=== PATIENT | male | born 1960 | race American Indian/Alaskan Native ===

== ENCOUNTER 2017-03-05 05:15 | Emergency (ER) | payer OTHER ==
[2017-03-05] MEDS ORDERED: CATAPRES ONE (05:58)
[2017-03-05] MEDS ORDERED: CATAPRES PO ONE (06:00)
--- NOTE | 2017-03-05 13:13 | Emergency Department Report ---
HPI - General Chief Complaint: High BP Time Seen by Provider: 03/05/17 13:00 - HPI HPI: This is a 56-year-old -Greek male presents to the emergency department with complaint of a 3 week history of right foot pain that occurred after he accidentally hit his foot on a pallet at work. It caused a abrasion to the distal dorsal foot at the base of the toes and this is where he has been having the pain. He denies any bleeding, discharge or any other signs or symptoms of infection at this time. He's been trying analgesic balm without any relief. The patient is diabetic. The patient also presents with very elevated blood pressure and says he has not been on his blood pressure medications for about 3 months secondary to insurance issues. He denies any chest pain, shortness of breath, fever, back pain but does complain of a "chest cold" that includes a productive cough has been going on for the past few days. No recent travel or sick contacts at home. He denies any tobacco or illicit drug use or abuse. Primary care physician is Dr. Steele. ED Past Medical Hx - Past Medical History Previous Medical History?: Yes Hx Hypertension: Yes Hx Diabetes: Yes Additional medical history: sleep apnea - Surgical History Past Surgical History?: No - Social History Smoking Status: Former Smoker Substance Use Type: Alcohol - Medications Home Medications: Home Medications Medication Instructions Recorded Confirmed Last Taken Type Amlodipine Besylate [Norvasc] 10 mg PO QDAY #30 tablet 03/05/17 Unknown Rx HYDROcodone/ACETAMINOPHEN [[place] 1 each PO Q6H PRN #12 tablet 03/05/17 Unknown Rx 5-325 Tablet] Sulfamethoxazole/Trimethoprim 1 each PO BID #14 tablet 03/05/17 Unknown Rx [Bactrim DS TAB] metFORMIN [Glucophage] 500 mg PO BID #60 tablet 03/05/17 Unknown Rx ED Review of Systems ROS: Stated complaint: RIGHT fOOT PAIN Other details as noted in HPI Comment: All other systems reviewed and negative Constitutional: denies: chills, fever Eyes: denies: eye pain, eye discharge, vision change ENT: denies: ear pain, throat pain Respiratory: cough. denies: shortness of breath Cardiovascular: denies: chest pain, palpitations Gastrointestinal: denies: abdominal pain, nausea, diarrhea Genitourinary: denies: urgency, dysuria Musculoskeletal: arthralgia. denies: back pain Skin: denies: rash, pruritus Neurological: denies: headache, weakness, paresthesias Physical Exam - Physical Exam Vital Signs: Vital Signs 03/05/17 03/05/17 03/05/17 05:49 06:02 11:29 Temperature 98.1 F Pulse Rate 101 H 101 H 94 H Respiratory 20 18 Rate Blood Pressure 208/134 208/133 221/148 O2 Sat by Pulse 97 Oximetry Physical Exam: GENERAL: The patient is well-developed well-nourished. HENT: Normocephalic. Atraumatic. Patient has moist mucous membranes. EYES: Extraocular motions are intact. Pupils equal reactive to light bilaterally. NECK: Supple. Trachea is midline. CHEST/LUNGS: Clear to auscultation. There is a productive sounding cough heard during examination. There is no respiratory distress noted. HEART/CARDIOVASCULAR: Regular. There is no tachycardia. There is no murmur. ABDOMEN: Abdomen is soft, nontender. Patient has normal bowel sounds. There is no abdominal distention. SKIN: Skin is warm and dry. There is a small abrasion to the distal dorsal right foot between toes 2 and 3. There is no surrounding erythema. There is no fluctuance or bleeding or discharge. NEURO: The patient is awake, alert, and oriented. The patient is cooperative. The patient has no focal neurologic deficits. The patient has normal speech and gait. MUSCULOSKELETAL: There is localized tenderness to palpation to the dorsal distal right foot between toes 2 and 3.. There is no limitation range of motion. Pedal pulses +2 over 4 bilaterally. Cap refill less than 2 seconds. ED Course Vital Signs 03/05/17 03/05/17 03/05/17 05:49 06:02 11:29 Temperature 98.1 F Pulse Rate 101 H 101 H 94 H Respiratory 20 18 Rate Blood Pressure 208/134 208/133 221/148 O2 Sat by Pulse 97 Oximetry ED Medical Decision Making - Lab Data Result diagrams: 03/05/17 13:39 03/05/17 13:39 - Radiology Data Radiology results: report reviewed, image reviewed interpreted by me: Chest x-ray shows some mild cardiomegaly but otherwise no pneumothorax, pleural effusions or obvious pneumonia. X-ray of the right foot does not show any fracture, dislocation, signs of osteomyelitis or any other acute process. - Medical Decision Making 56-year-old male presents with complaint of right foot pain for the past few weeks and a chest cold. He has medication noncompliance for the past few months including his blood pressure and IV's medications. He presents with very elevated blood pressure but is otherwise asymptomatic regarding hypertension. He was given a Catapres through triage many hours ago and then was given a dose of 10 mg hydralazine to the IV and his blood pressure came down to a much more reasonable level prior to discharge. His labs do show some elevated blood sugar level of about 270 but there is no elevated anion gap and the patient does not appear to be in diabetic ketoacidosis. He has some renal insufficiency with a creatinine of 2. However the patient says that he has polyuria and he denies any abdominal or flank or back pain. He appears safe for discharge home at this time. He was given a dose of antibiotics to empirically treat his foot. He was started on Norvasc and we discussed dietary changes to make for his blood pressure. He was restarted on his metformin and he will keep a blood sugar log to make sure he does not become hypoglycemic and to make sure that it is working. He was given a referral for podiatry. He was encouraged to follow up with his primary care doctor in the next 2 days. He will return to the ER with any worsening of symptoms or any acute distress. - Differential Diagnosis fracture, dislocation, osteomyelitis, URI, bronchitis, pneumonia Critical Care Time: No Critical care attestation.: If time is entered above; I have spent that time in minutes in the direct care of this critically ill patient, excluding procedure time. ED Disposition Clinical Impression: Right foot pain, Hyperglycemia, Asymptomatic hypertensive urgency, H/O medication noncompliance, Renal insufficiency Disposition: DC-01 TO HOME OR SELFCARE Is pt being admited?: No Condition: Stable Instructions: Hypertension (ED), Arthralgia (ED), Diabetic Hyperglycemia (ED), Impaired Kidney Function (ED) Additional Instructions: Please follow-up with your primary care physician in the next few days without fail. I have given you a referral for a local motor bike mechanic, Dr. Tracey, to follow up regarding your right foot pain. Return to the emergency Department with any worsening of your symptoms or any acute distress. You have been prescribed a medication that is sedating and therefore should not be taken prior to driving, working, and responsible for children and in no way should be mixed with alcohol of any quantity. Try and stay away from foods that are high in salt and caffeinated products to help with your blood pressure. Keep a blood pressure log. Try and stay away from foods that are high in sugar, carbohydrates and starches to help with your blood sugar. Keep a blood sugar log. Prescriptions: Amlodipine Besylate [Norvasc] 10 mg PO QDAY #30 tablet HYDROcodone/ACETAMINOPHEN [[place] 5-325 Tablet] 1 each PO Q6H PRN #12 tablet PRN Reason: Pain metFORMIN [Glucophage] 500 mg PO BID #60 tablet Sulfamethoxazole/Trimethoprim [Bactrim DS TAB] 1 each PO BID #14 tablet Referrals: MENDOZA CESPEDES MD [Primary Care Provider] - 3-5 Days THELMA TRACEY MD [Staff Physician] - 3-5 Days Forms: Work/School Release Form(ED) Time of Disposition: 14:56
[2017-03-05 13:58] LABS: Basophils % (Auto) 2.5 % (0.0-1.8); Eosinophils % (Auto) 1.9 % (0.0-4.3); Hematocrit 46.6 % (35.5-45.6); Hemoglobin 15.8 gm/dl (11.8-15.2); Mean Corpuscular HGB Conc 34 % (32-34); Mean Corpuscular Hemoglobin 31 pg (28-32); Mean Corpuscular Volume 90 fl (84-94); Platelet Count 245 K/mm3 (140-440); Red Blood Count 5.17 M/mm3 (3.65-5.03); Red Cell Distribution Width 12.4 % (13.2-15.2); White Blood Count 10.5 K/mm3 (4.5-11.0)
[2017-03-05] MEDS ORDERED: APRESOLINE IV ONE (14:11)
[2017-03-05 14:13] LABS: Albumin 2.9 g/dL (3.9-5); Albumin/Globulin Ratio 0.7 %; Bilirubin,Total 0.2 mg/dL (0.1-1.2); Calcium 8.6 mg/dL (8.4-10.2); Chloride 100.5 mmol/L (98-107); Potassium 4.1 mmol/L (3.6-5.0); Total Protein 6.8 g/dL (6.3-8.2)
[2017-03-05 15:11] VITALS: BP 141/88
--- NOTE | 2017-03-05 15:32 | XRay Report ---
RIGHT FOOT RADIOGRAPHS INDICATION: Right foot pain. COMPARISON: None similar. FINDINGS: AP, lateral and oblique right foot radiographs demonstrate intact bony articulation. No suspicious erosions. Moderate atherosclerotic vascular calcifications. Slight dorsal mid foot degenerative spurring. Diffuse foot soft tissue swelling also suspected, more so along the dorsum, possibly extending to the ankle/lower leg. CONCLUSION: Right foot soft tissue swelling suspected without acute bony abnormality and few other findings, as above. Please correlate. Thank you for the opportunity to participate in this patient's care.
--- NOTE | 2017-03-05 15:33 | XRay Report ---
CHEST 2 VIEWS INDICATION: Cough. COMPARISON: 07/11/2007. FINDINGS: PA and lateral chest radiographs demonstrate normal cardiomediastinal silhouette. Clear lungs. Mild increased AC joint degenerative changes. CONCLUSION: No acute disease in the chest. Thank you for the opportunity to participate in this patient's care.
== END 2017-03-05 15:11 | disposition home or self-care (01) ==
LOC: ED 05:15
DX: S90.811A Abrasion, right foot, initial encounter (principal); E11.65 Type 2 diabetes mellitus with hyperglycemia; I10 Essential (primary) hypertension; N28.9 Disorder of kidney and ureter, unspecified; Z87.891 Personal history of nicotine dependence; W22.8XXA Striking against or struck by other objects, initial encounter; Y93.89 Activity, other specified; Y99.8 Other external cause status; Y92.89 Other specified places as the place of occurrence of the external cause
CPT/HCPCS: 36415; 71020; 73630; 80053; 85025; 96374; 99284; J0360

== ENCOUNTER 2017-06-04 13:21 | Outpatient (CLI) | payer OTHER ==
[2017-06-04] MEDS ORDERED: XYLOCAINE TOPICAL 4% TP ONE (13:48)
== END 2017-06-04 13:22 | disposition home or self-care (01) ==
LOC: WOUND 13:21
PROVIDERS: ATTEND Surgery
DX: E11.621 Type 2 diabetes mellitus with foot ulcer (principal); L97.512 Non-pressure chronic ulcer of other part of right foot with fat layer exposed; I10 Essential (primary) hypertension
CPT/HCPCS: 11042; 11045; G0463

== ENCOUNTER 2017-06-11 11:12 | Outpatient (CLI) | payer OTHER ==
[2017-06-11] MEDS ORDERED: XYLOCAINE TOPICAL 4% TP ONE (12:04)
== END 2017-06-11 11:13 | disposition home or self-care (01) ==
LOC: WOUND 11:12
PROVIDERS: ATTEND Surgery
DX: E11.621 Type 2 diabetes mellitus with foot ulcer (principal); L97.512 Non-pressure chronic ulcer of other part of right foot with fat layer exposed; I10 Essential (primary) hypertension
CPT/HCPCS: 97602

== ENCOUNTER 2017-06-18 11:12 | Outpatient (CLI) | payer OTHER ==
[2017-06-18] MEDS ORDERED: XYLOCAINE TOPICAL 4% TP ONE ×2 (11:26→11:33)
[2017-06-18] MEDS ORDERED: NACL 0.9% 500 ML IR ONE (12:15)
[2017-06-18] MEDS ORDERED: NACL 0.9% IR ONE (13:29)
== END 2017-06-18 11:13 | disposition home or self-care (01) ==
LOC: WOUND 11:12
PROVIDERS: ATTEND Surgery
DX: E11.621 Type 2 diabetes mellitus with foot ulcer (principal); L97.512 Non-pressure chronic ulcer of other part of right foot with fat layer exposed; I10 Essential (primary) hypertension

== ENCOUNTER 2017-06-25 09:29 | Outpatient (CLI) | payer OTHER ==
--- NOTE | 2017-06-26 18:05 | Vascular Lab Report ---
LOWER EXTREMITY ARTERIAL DUPLEX: REASON FOR EXAM: Right foot ulcer. COMMENTS ON THE RIGHT: Triphasic waveforms are seen proximally. Monophasic waveforms are seen distally. 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 Scattered plaque is seen throughout. Findings are consistent with abnormal perfusion. Findings are not consistent with the ability to heal distal wounds. COMMENTS ON THE LEFT: Limited study was done the left lower extremity. Monophasic waveforms and low flow velocities are noted at the ankle. IMPRESSION: RIGHT: Monophasic distal flow consistent with tibial artery occlusive disease. Recommend further evaluation. LEFT:Evidence of distal arterial occlusive disease. Recommend further evaluation.
== END 2017-06-25 09:30 | disposition home or self-care (01) ==
LOC: VAS 09:29
PROVIDERS: ATTEND Surgery
DX: I70.202 Unspecified atherosclerosis of native arteries of extremities, left leg (principal); E11.621 Type 2 diabetes mellitus with foot ulcer; L97.512 Non-pressure chronic ulcer of other part of right foot with fat layer exposed; E08.40 Diabetes mellitus due to underlying condition with diabetic neuropathy, unspecified

== ENCOUNTER 2017-06-25 10:50 | Outpatient (CLI) | payer OTHER ==
[2017-06-25] MEDS ORDERED: XYLOCAINE TOPICAL 4% TP ONE ×2 (11:06→12:03)
== END 2017-06-25 10:51 | disposition home or self-care (01) ==
LOC: WOUND 10:50
PROVIDERS: ATTEND Surgery
DX: E11.621 Type 2 diabetes mellitus with foot ulcer (principal); L97.512 Non-pressure chronic ulcer of other part of right foot with fat layer exposed; I10 Essential (primary) hypertension

== ENCOUNTER 2017-08-20 08:18 | Outpatient (CLI) | payer OTHER ==
[2017-08-20] MEDS ORDERED: XYLOCAINE TOPICAL 4% TP ONE ×2 (08:38→11:59)
== END 2017-08-20 08:19 | disposition home or self-care (01) ==
LOC: WOUND 08:18
PROVIDERS: ATTEND Surgery
DX: E11.621 Type 2 diabetes mellitus with foot ulcer (principal); L97.512 Non-pressure chronic ulcer of other part of right foot with fat layer exposed; G47.30 Sleep apnea, unspecified; I10 Essential (primary) hypertension
CPT/HCPCS: G0463-25

== ENCOUNTER 2017-08-21 08:54 | Outpatient (CLI) | payer OTHER | END 2017-08-21 08:55 | disposition home or self-care (01) | LOC: WOUND 08:54 | PROVIDERS: ATTEND Surgery | DX: E11.621 Type 2 diabetes mellitus with foot ulcer (principal); L97.512 Non-pressure chronic ulcer of other part of right foot with fat layer exposed; I10 Essential (primary) hypertension; G47.30 Sleep apnea, unspecified | CPT/HCPCS: 82962; G0277; 99183 ==

== ENCOUNTER 2017-08-23 08:28 | Outpatient (CLI) | payer OTHER | END 2017-08-23 08:29 | disposition home or self-care (01) | LOC: WOUND 08:28 | PROVIDERS: ATTEND Surgery | DX: E11.621 Type 2 diabetes mellitus with foot ulcer (principal); L97.512 Non-pressure chronic ulcer of other part of right foot with fat layer exposed; I10 Essential (primary) hypertension; G47.30 Sleep apnea, unspecified | CPT/HCPCS: 82962; 97605; G0277; 99183 ==

== ENCOUNTER 2017-08-26 08:07 | Outpatient (CLI) | payer OTHER | END 2017-08-26 08:08 | disposition home or self-care (01) | LOC: WOUND 08:07 | PROVIDERS: ATTEND Surgery | DX: E11.621 Type 2 diabetes mellitus with foot ulcer (principal); L97.512 Non-pressure chronic ulcer of other part of right foot with fat layer exposed; E11.40 Type 2 diabetes mellitus with diabetic neuropathy, unspecified; I10 Essential (primary) hypertension; G47.30 Sleep apnea, unspecified | CPT/HCPCS: 82962; G0277; 99183 ==

== ENCOUNTER 2017-08-27 08:10 | Outpatient (CLI) | payer OTHER ==
[2017-08-27] MEDS ORDERED: XYLOCAINE TOPICAL 4% TP ONE (08:19)
[2017-08-27] MEDS ORDERED: SILVER NITRATE TP ONE ×2 (08:51→09:30)
== END 2017-08-27 08:11 | disposition home or self-care (01) ==
LOC: WOUND 08:10
PROVIDERS: ATTEND Surgery
DX: E11.621 Type 2 diabetes mellitus with foot ulcer (principal); L97.512 Non-pressure chronic ulcer of other part of right foot with fat layer exposed; I10 Essential (primary) hypertension; G47.30 Sleep apnea, unspecified
CPT/HCPCS: 97605

== ENCOUNTER 2017-09-03 08:03 | Outpatient (CLI) | payer OTHER ==
[2017-09-03] MEDS ORDERED: XYLOCAINE TOPICAL 4% TP ONE ×2 (08:12→08:35)
== END 2017-09-03 08:04 | disposition home or self-care (01) ==
LOC: WOUND 08:03
PROVIDERS: ATTEND Surgery
DX: E11.621 Type 2 diabetes mellitus with foot ulcer (principal); L97.512 Non-pressure chronic ulcer of other part of right foot with fat layer exposed; I10 Essential (primary) hypertension; G47.30 Sleep apnea, unspecified

== ENCOUNTER 2017-09-17 08:20 | Outpatient (CLI) | payer OTHER ==
[2017-09-17] MEDS ORDERED: XYLOCAINE TOPICAL 4% TP ONE ×2 (08:25→08:26)
[2017-09-17] MEDS ORDERED: SILVER NITRATE TP ONE (08:59)
== END 2017-09-17 08:21 | disposition home or self-care (01) ==
LOC: WOUND 08:20
PROVIDERS: ATTEND Surgery
DX: E11.621 Type 2 diabetes mellitus with foot ulcer (principal); L97.512 Non-pressure chronic ulcer of other part of right foot with fat layer exposed; I10 Essential (primary) hypertension; G47.30 Sleep apnea, unspecified

== ENCOUNTER 2017-10-29 07:59 | Outpatient (CLI) | payer OTHER ==
[2017-10-29] MEDS ORDERED: XYLOCAINE TOPICAL 4% TP ONE (08:16)
[2017-10-29] MEDS ORDERED: SILVER NITRATE TP ONE ×2 (08:59→11:21)
== END 2017-10-29 08:00 | disposition home or self-care (01) ==
LOC: WOUND 07:59
PROVIDERS: ATTEND Surgery
DX: E11.621 Type 2 diabetes mellitus with foot ulcer (principal); L97.512 Non-pressure chronic ulcer of other part of right foot with fat layer exposed; I10 Essential (primary) hypertension; G47.30 Sleep apnea, unspecified

== ENCOUNTER 2017-11-05 08:12 | Outpatient (CLI) | payer OTHER ==
[2017-11-05] MEDS ORDERED: XYLOCAINE TOPICAL 4% TP ONE ×2 (08:35→08:49)
== END 2017-11-05 08:13 | disposition home or self-care (01) ==
LOC: WOUND 08:12
PROVIDERS: ATTEND Surgery
DX: E11.621 Type 2 diabetes mellitus with foot ulcer (principal); L97.512 Non-pressure chronic ulcer of other part of right foot with fat layer exposed; I10 Essential (primary) hypertension; G47.30 Sleep apnea, unspecified

== ENCOUNTER 2017-11-29 08:00 | Outpatient (CLI) | payer OTHER ==
[2017-11-29] MEDS ORDERED: XYLOCAINE TOPICAL 4% TP ONE (08:31)
== END 2017-11-29 08:01 | disposition home or self-care (01) ==
LOC: WOUND 08:00
PROVIDERS: ATTEND Surgery
DX: E11.621 Type 2 diabetes mellitus with foot ulcer (principal); L97.512 Non-pressure chronic ulcer of other part of right foot with fat layer exposed; I10 Essential (primary) hypertension; G47.30 Sleep apnea, unspecified

== ENCOUNTER 2017-12-06 07:58 | Outpatient (CLI) | payer OTHER ==
[2017-12-06] MEDS ORDERED: XYLOCAINE TOPICAL 4% TP ONE ×2 (08:06→08:29)
== END 2017-12-06 07:59 | disposition home or self-care (01) ==
LOC: WOUND 07:58
PROVIDERS: ATTEND Surgery
DX: E11.621 Type 2 diabetes mellitus with foot ulcer (principal); L97.512 Non-pressure chronic ulcer of other part of right foot with fat layer exposed; I10 Essential (primary) hypertension; G47.30 Sleep apnea, unspecified

== ENCOUNTER 2017-12-27 07:55 | Outpatient (CLI) | payer OTHER ==
[2017-12-27] MEDS ORDERED: XYLOCAINE TOPICAL 4% TP ONE ×2 (08:02→15:28)
== END 2017-12-27 07:56 | disposition home or self-care (01) ==
LOC: WOUND 07:55
PROVIDERS: ATTEND Surgery
DX: E11.621 Type 2 diabetes mellitus with foot ulcer (principal); L97.512 Non-pressure chronic ulcer of other part of right foot with fat layer exposed; I10 Essential (primary) hypertension; G47.30 Sleep apnea, unspecified
CPT/HCPCS: 99214; G0463

== ENCOUNTER 2018-03-28 12:41 | Outpatient (CLI) | payer OTHER ==
[2018-03-28] MEDS ORDERED: XYLOCAINE TOPICAL 4% TP ONE (13:12)
[2018-03-28] MEDS ORDERED: SILVER NITRATE TP ONE (14:12)
== END 2018-03-28 12:42 | disposition home or self-care (01) ==
LOC: WOUND 12:41
PROVIDERS: ATTEND Surgery
DX: E11.621 Type 2 diabetes mellitus with foot ulcer (principal); L97.512 Non-pressure chronic ulcer of other part of right foot with fat layer exposed; E11.40 Type 2 diabetes mellitus with diabetic neuropathy, unspecified; I10 Essential (primary) hypertension; G47.30 Sleep apnea, unspecified

== ENCOUNTER 2018-04-11 07:57 | Outpatient (CLI) | payer OTHER ==
[2018-04-11] MEDS ORDERED: XYLOCAINE TOPICAL 4% TP NR (08:30)
[2018-04-11] MEDS ORDERED: XYLOCAINE TOPICAL 4% TP ONE (08:30)
[2018-04-11] MEDS ORDERED: SILVER NITRATE TP ONE (08:43)
== END 2018-04-11 07:58 | disposition home or self-care (01) ==
LOC: WOUND 07:57
PROVIDERS: ATTEND Surgery
DX: E11.621 Type 2 diabetes mellitus with foot ulcer (principal); L97.512 Non-pressure chronic ulcer of other part of right foot with fat layer exposed; E11.40 Type 2 diabetes mellitus with diabetic neuropathy, unspecified; I10 Essential (primary) hypertension; G47.30 Sleep apnea, unspecified; Z79.4 Long term (current) use of insulin

== ENCOUNTER 2018-05-02 07:58 | Outpatient (CLI) | payer OTHER ==
[2018-05-02] MEDS ORDERED: XYLOCAINE TOPICAL 4% TP ONE (08:08)
[2018-05-02] MEDS ORDERED: SILVER NITRATE TP ONE (08:09)
== END 2018-05-02 07:59 | disposition home or self-care (01) ==
LOC: WOUND 07:58
PROVIDERS: ATTEND Surgery
DX: E11.621 Type 2 diabetes mellitus with foot ulcer (principal); L97.512 Non-pressure chronic ulcer of other part of right foot with fat layer exposed; E11.40 Type 2 diabetes mellitus with diabetic neuropathy, unspecified; I10 Essential (primary) hypertension; G47.30 Sleep apnea, unspecified; Z79.4 Long term (current) use of insulin

== ENCOUNTER 2018-05-23 08:31 | Outpatient (CLI) | payer OTHER | END 2018-05-23 08:32 | disposition home or self-care (01) | LOC: WOUND 08:31 | PROVIDERS: ATTEND Surgery | DX: E11.621 Type 2 diabetes mellitus with foot ulcer (principal); L97.512 Non-pressure chronic ulcer of other part of right foot with fat layer exposed; E11.40 Type 2 diabetes mellitus with diabetic neuropathy, unspecified; L84 Corns and callosities; I10 Essential (primary) hypertension; G47.30 Sleep apnea, unspecified; Z79.4 Long term (current) use of insulin ==

== ENCOUNTER 2018-06-20 07:56 | Outpatient (CLI) | payer OTHER | END 2018-06-20 07:57 | disposition home or self-care (01) | LOC: WOUND 07:56 | PROVIDERS: ATTEND Surgery | DX: E11.621 Type 2 diabetes mellitus with foot ulcer (principal); L97.512 Non-pressure chronic ulcer of other part of right foot with fat layer exposed; E11.40 Type 2 diabetes mellitus with diabetic neuropathy, unspecified; I10 Essential (primary) hypertension; G47.30 Sleep apnea, unspecified | CPT/HCPCS: C5275 ==

== ENCOUNTER 2018-06-27 07:55 | Outpatient (CLI) | payer OTHER ==
[2018-06-27] MEDS ORDERED: AD OINTMENT TP PRN (08:30)
== END 2018-06-27 07:56 | disposition home or self-care (01) ==
LOC: WOUND 07:55
PROVIDERS: ATTEND Surgery
DX: E11.621 Type 2 diabetes mellitus with foot ulcer (principal); L97.512 Non-pressure chronic ulcer of other part of right foot with fat layer exposed; E11.40 Type 2 diabetes mellitus with diabetic neuropathy, unspecified; I10 Essential (primary) hypertension; G47.30 Sleep apnea, unspecified
CPT/HCPCS: 99214; A6250; G0463

== ENCOUNTER 2018-07-11 07:52 | Outpatient (CLI) | payer OTHER | END 2018-07-11 07:53 | disposition home or self-care (01) | LOC: WOUND 07:52 | PROVIDERS: ATTEND Surgery | DX: E11.621 Type 2 diabetes mellitus with foot ulcer (principal); L97.512 Non-pressure chronic ulcer of other part of right foot with fat layer exposed; E11.40 Type 2 diabetes mellitus with diabetic neuropathy, unspecified; I10 Essential (primary) hypertension; G47.30 Sleep apnea, unspecified; Z79.4 Long term (current) use of insulin ==

== ENCOUNTER 2018-08-01 07:52 | Outpatient (CLI) | payer OTHER ==
[2018-08-01] MEDS ORDERED: XYLOCAINE TOPICAL 4% TP ONE (08:05)
[2018-08-01] MEDS ORDERED: AD OINTMENT TP SCH (10:00)
== END 2018-08-01 07:53 | disposition home or self-care (01) ==
LOC: WOUND 07:52
PROVIDERS: ATTEND Surgery
DX: E11.621 Type 2 diabetes mellitus with foot ulcer (principal); L97.512 Non-pressure chronic ulcer of other part of right foot with fat layer exposed; E11.40 Type 2 diabetes mellitus with diabetic neuropathy, unspecified; I10 Essential (primary) hypertension; G47.30 Sleep apnea, unspecified

== ENCOUNTER 2018-08-15 07:53 | Outpatient (CLI) | payer OTHER ==
[2018-08-15] MEDS ORDERED: SODIUM CHLORIDE FLUSH SYRINGE 10 ML IV PRN (08:06)
[2018-08-15] MEDS ORDERED: XYLOCAINE TOPICAL 4% TP ONE (08:06)
[2018-08-15] MEDS ORDERED: SILVER NITRATE TP ONE (08:06)
== END 2018-08-15 07:54 | disposition home or self-care (01) ==
LOC: WOUND 07:53
PROVIDERS: ATTEND Surgery
DX: E11.621 Type 2 diabetes mellitus with foot ulcer (principal); L97.512 Non-pressure chronic ulcer of other part of right foot with fat layer exposed; E11.40 Type 2 diabetes mellitus with diabetic neuropathy, unspecified; I10 Essential (primary) hypertension; G47.30 Sleep apnea, unspecified

== ENCOUNTER 2018-08-22 07:56 | Outpatient (CLI) | payer OTHER | END 2018-08-22 07:57 | disposition home or self-care (01) | LOC: WOUND 07:56 | PROVIDERS: ATTEND Surgery | DX: E11.621 Type 2 diabetes mellitus with foot ulcer (principal); L97.512 Non-pressure chronic ulcer of other part of right foot with fat layer exposed; E11.40 Type 2 diabetes mellitus with diabetic neuropathy, unspecified; I10 Essential (primary) hypertension; G47.30 Sleep apnea, unspecified ==

== ENCOUNTER 2018-08-29 07:54 | Outpatient (CLI) | payer OTHER ==
[2018-08-29] MEDS ORDERED: XYLOCAINE TOPICAL 4% TP ONE (08:30)
[2018-08-29] MEDS ORDERED: SILVER NITRATE TP ONE (08:30)
== END 2018-08-29 07:55 | disposition home or self-care (01) ==
LOC: WOUND 07:54
PROVIDERS: ATTEND Surgery
DX: E11.621 Type 2 diabetes mellitus with foot ulcer (principal); L97.512 Non-pressure chronic ulcer of other part of right foot with fat layer exposed; I10 Essential (primary) hypertension; G47.30 Sleep apnea, unspecified
CPT/HCPCS: 99212; G0463

== ENCOUNTER 2018-09-05 07:56 | Outpatient (CLI) | payer OTHER | END 2018-09-05 07:57 | disposition home or self-care (01) | LOC: WOUND 07:56 | PROVIDERS: ATTEND Surgery | DX: E11.621 Type 2 diabetes mellitus with foot ulcer (principal); L97.512 Non-pressure chronic ulcer of other part of right foot with fat layer exposed; I10 Essential (primary) hypertension; G47.30 Sleep apnea, unspecified | CPT/HCPCS: 99212; G0463 ==

== ENCOUNTER 2019-02-14 12:43 | Observation (INO) | payer OTHER ==
[2019-02-14 13:48] LABS: Basophils # (Auto) 0.2 K/mm3 (0.0-0.1); Eosinophils # (Auto) 0.1 K/mm3 (0.0-0.4); Eosinophils % (Auto) 1.6 % (0.0-4.3); Hematocrit 42.6 % (35.5-45.6); Hemoglobin 14.6 gm/dl (11.8-15.2); Lymphocytes # (Auto) 0.9 K/mm3 (1.2-5.4); Lymphocytes % (Auto) 10.2 % (13.4-35.0); Mean Corpuscular HGB Conc 34 % (32-34); Mean Corpuscular Volume 89 fl (84-94); Monocytes # (Auto) 0.9 K/mm3 (0.0-0.8); Platelet Count 296 K/mm3 (140-440); Red Blood Count 4.78 M/mm3 (3.65-5.03); Red Cell Distribution Width 12.9 % (13.2-15.2)
[2019-02-14 13:54] LABS: INR 1.01 (0.87-1.13); Partial Thromboplastin Time 28.1 Sec. (24.2-36.6)
[2019-02-14 14:01] LABS: Alanine Aminotransferase 24 units/L (7-56); Albumin 3.6 g/dL (3.9-5)
--- NOTE | 2019-02-14 14:03 | XRay Report ---
CHEST 1 VIEW INDICATION / CLINICAL INFORMATION: cough. COMPARISON: None available. FINDINGS: Lung volumes are low, but the lungs are clear. No appreciable pleural fluid. No pneumothora x. Cardiomediastinal silhouette is stable. No significant change from 07/12/2017. Signer Name: Lane Felix MD Signed: 02/14/2019 1:59 PM Workstation Name: [id number]
[2019-02-14 14:14] LABS: Bilirubin,Direct < 0.2 mg/dL (0-0.2)
[2019-02-14 14:47] LABS: Chol/HDL Ratio 2.93 %
--- NOTE | 2019-02-14 14:52 | Emergency Department Report ---
HPI - General Chief Complaint: Chest Pain Time Seen by Provider: 02/14/19 13:02 - HPI HPI: 58-year-old -N[place]ian male presents to the emergency department via EMS with complaint of having some chest pain, shortness of breath and generally just feeling ill that started earlier in the day. Patient thought he might have been developing a cold and thought that if he got up and went out to the store that he might feel better, getting out of the house. However doing so appears to have worsened his symptoms and EMS was called. EMS did a 12-lead EKG that showed A. fib with RVR. The patient did present with tachycardia with a heart rate of about 125 bpm upon arrival to the emergency department, that was most likely still the atrial fibrillation, but he immediately converted to a sinus rhythm during triage. The patient has a past medical history of hypertension and diabetes but denies any history of atrial fibrillation or arrhythmia. He de nies any tobacco use or illicit drug use. He did not take anything for her symptoms or receive anything prior to arrival today. No recent travel or sick contacts at home. ED Past Medical Hx - Past Medical History Previous Medical History?: Yes Hx Hypertension: Yes Hx Diabetes: Yes Hx Deep Vein Thrombosis: No Additional medical history: sleep apnea - Surgical History Hx Pacemaker: No Hx Internal Defibrillator: No - Social History Smoking Status: Never Smoker Substance Use Type: Alcohol - Medications Home Medications: Home Medications Medication Instructions Recorded Confirmed Last Taken Type Amlodipine Besylate [Norvasc] 10 mg PO QDAY #30 tablet 03/05/17 07/08/17 Unknown Rx AtorvaSTATin [Lipitor] 20 mg PO QHS 07/08/17 07/08/17 Unknown History Gabapentin [Neurontin] 600 mg PO Q8H 07/08/17 07/08/17 Unknown History Metoprolol Tartrate 50 mg PO BID 07/08/17 07/08/17 Unknown History traMADoL [Ultram 50 MG tab] 50 mg PO Q6HR PRN 07/08/17 07/08/17 Unknown History Cefepime 2 gm IV Q12HR vial 07/19/17 Unknown Rx Clopidogrel [Plavix] 75 mg PO QDAY tablet 07/19/17 Unknown Rx Insulin Glargine [Lantus VIAL] 30 units SUB-Q QHS units 07/19/17 Unknown Rx Lispro Insulin [HumaLOG] 6 unit SUB-Q AC units 07/19/17 Unknown Rx ED Review of Systems ROS: Stated complaint: CHEST PAIN Other details as noted in HPI Comment: All other systems reviewed and negative Constitutional: denies: chills, fever Eyes: denies: eye pain, vision change ENT: denies: ear pain, throat pain Respiratory: shortness of breath. denies: cough Cardiovascular: chest pain. denies: palpitations Gastrointestinal: denies: abdominal pain, vomiting Genitourinary: denies: dysuria, discharge Musculoskeletal: denies: back pain, arthralgia Skin: denies: rash, lesions Neurological: denies: headache, weakness Physical Exam - Physical Exam Vital Signs: Vital Signs 02/14/19 02/14/19 02/14/19 13:06 13:39 13:42 Temperature 98.0 F 97.9 F Pulse Rate 78 78 78 Respiratory 17 17 Rate Blood Pressure 155/82 [Left] O2 Sat by Pulse 99 99 Oximetry 02/14/19 14:25 Temperature Pulse Rate 73 Respiratory 18 Rate Blood Pressure 156/102 [Left] O2 Sat by Pulse 98 Oximetry Physical Exam: GENERAL: The patient is well-developed well-nourished. HENT: Normocephalic. Atraumatic. Patient has moist mucous membranes. EYES: Extraocular motions are intact. NECK: Supple. Trachea is midline. CHEST/LUNGS: Clear to auscultation. There is no respiratory distress noted. HEART/CARDIOVASCULAR: Regular. There is no tachycardia. There is no murmur. ABDOMEN: Abdomen is soft, nontender. Patient has normal bowel sounds. Obese habitus. SKIN: Skin is warm and dry. NEURO: The patient is awake, alert, and oriented. The patient is cooperative. The patient has no focal neurologic deficits. Normal speech. MUSCULOSKELETAL: There is no tenderness or deformity. There is no evidence of a cute injury. ED Course Vital Signs 02/14/19 02/14/19 02/14/19 13:06 13:39 13:42 Temperature 98.0 F 97.9 F Pulse Rate 78 78 78 Respiratory 17 17 Rate Blood Pressure 155/82 [Left] O2 Sat by Pulse 99 99 Oximetry 02/14/19 14:25 Temperature Pulse Rate 73 Respiratory 18 Rate Blood Pressure 156/102 [Left] O2 Sat by Pulse 98 Oximetry ED Medical Decision Making - Lab Data Result diagrams: 02/14/19 13:20 02/14/19 13:20 - EKG Data -: EKG Interpreted by Me EKG shows normal: sinus rhythm (PACs), axis, intervals, QRS complexes, ST-T waves Rate: normal - EKG Data When compared to previous EKG there are: previous EKG unavailable Interpretation: other (Sinus, normal axis, normal intervals. PACs) - Radiology Data Radiology results: image reviewed interpreted by me: Chest x-ray does not show any acute process. There are no pleural effusions, obvious pneumonia and there is no pneumothorax. - Medical Decision Making This patient originally presented after he experienced some chest pain and shortness of breath throughout the morning and early afternoon. It appears to have resolved upon arrival to the emergency department. The patient was found have atrial fibrillation with RVR on the EKG done by EMS but he appears to have converted back to a sinus rhythm once he got into the emergency department. Patient's labs show acute renal failure. We last have work done from him about a year and a half ago and his GFR was 47 at that time. Today it is 19. The patient also has a elevated troponin level, which may be secondary to the renal insufficiency, but also is concerning since the patient did have some previous chest pain with the new onset A. fib with RVR. I spoke to the patient and his family in great detail about the need for admission for further evaluation of the renal failure, elevated troponins and for the reason why he went into atrial fibrillation in the first place. At first the patient agreed and he was accepted for admission by the hospitalist. In reviewing the chart, it appears that the patient later signed out AGAINST MEDICAL ADVICE. - Differential Diagnosis dysrhythmia, renal failure, [place], pneumonia Critical Care Time: No Critical care attestation.: If time is entered above; I have spent that time in minutes in the direct care of this critically ill patient, excluding procedure time. ED Disposition Clinical Impression: Paroxysmal atrial fibrillation with RVR, Elevated troponin Acute renal failure Qualifiers: Acute renal failure type: unspecified Qualified Code(s): N17.9 - Acute kidney failure, unspecified Disposition: OP ADMIT IP TO THIS HOSP Is pt being admited?: Yes Condition: Fair Time of Disposition: 14:59
[2019-02-14 16:38] VITALS: BP 160/102
--- NOTE | 2019-02-14 19:44 | Event Note ---
Date: 02/14/19 Patient was being evaluated for chest pain Patient did not want stress test and left AMA Risks and Benefits explained. Patient insisted on leaving AMA
== END 2019-02-14 17:00 | disposition left against medical advice (07) ==
LOC: ED 12:43 → 4A 14:59 → INTOOBSV 14:59 → 4A 16:07
PROVIDERS: ADMIT Internal Medicine; ATTEND Internal Medicine
DX: I48.0 Paroxysmal atrial fibrillation (principal); R74.8 Abnormal levels of other serum enzymes; I10 Essential (primary) hypertension; E11.9 Type 2 diabetes mellitus without complications; G47.30 Sleep apnea, unspecified; Z79.4 Long term (current) use of insulin
CPT/HCPCS: 36415; 71045; 80048; 80061; 80076; 84443; 84484; 85025; 85610; 85730; 93005; 93010; 99284; G0378

== ENCOUNTER 2020-04-11 13:08 | Outpatient (CLI) | payer OTHER, MEDICARE ==
[2020-04-11] MEDS ORDERED: LIDOCAINE (4%) 40 MG/ML TOPICAL SOLN 50 ML BOTTLE TP ONE (13:18)
== END 2020-04-11 13:09 | disposition home or self-care (01) ==
LOC: WOUND 13:08
PROVIDERS: ATTEND Surgery
DX: E11.621 Type 2 diabetes mellitus with foot ulcer (principal); L97.522 Non-pressure chronic ulcer of other part of left foot with fat layer exposed; S91.302A Unspecified open wound, left foot, initial encounter; E11.51 Type 2 diabetes mellitus with diabetic peripheral angiopathy without gangrene; I10 Essential (primary) hypertension; G47.30 Sleep apnea, unspecified; X58.XXXA Exposure to other specified factors, initial encounter; Y93.89 Activity, other specified; Y92.89 Other specified places as the place of occurrence of the external cause; Y99.8 Other external cause status
CPT/HCPCS: 99215; G0463

== ENCOUNTER 2020-05-09 13:35 | Outpatient (CLI) | payer OTHER, MEDICARE ==
[2020-05-09] MEDS ORDERED: LIDOCAINE (4%) 40 MG/ML TOPICAL SOLN 50 ML BOTTLE TP ONE (13:55)
== END 2020-05-09 13:36 | disposition home or self-care (01) ==
LOC: WOUND 13:35
PROVIDERS: ATTEND Surgery
DX: E11.621 Type 2 diabetes mellitus with foot ulcer (principal); L97.522 Non-pressure chronic ulcer of other part of left foot with fat layer exposed; S91.302D Unspecified open wound, left foot, subsequent encounter; E11.51 Type 2 diabetes mellitus with diabetic peripheral angiopathy without gangrene; I10 Essential (primary) hypertension; G47.30 Sleep apnea, unspecified; X58.XXXD Exposure to other specified factors, subsequent encounter

== ENCOUNTER 2020-05-30 13:31 | Outpatient (CLI) | payer OTHER, MEDICARE ==
[2020-05-30] MEDS ORDERED: LIDOCAINE (4%) 40 MG/ML TOPICAL SOLN 50 ML BOTTLE TP ONE (14:00)
[2020-05-30] MEDS ORDERED: SODIUM CHLORIDE 0.9% IRR 500 ML BOTTLE IR ONE (15:30)
== END 2020-05-30 13:32 | disposition home or self-care (01) ==
LOC: WOUND 13:31
PROVIDERS: ATTEND Surgery
DX: E11.621 Type 2 diabetes mellitus with foot ulcer (principal); L97.522 Non-pressure chronic ulcer of other part of left foot with fat layer exposed; S91.302D Unspecified open wound, left foot, subsequent encounter; E11.51 Type 2 diabetes mellitus with diabetic peripheral angiopathy without gangrene; I10 Essential (primary) hypertension; G47.30 Sleep apnea, unspecified; X58.XXXD Exposure to other specified factors, subsequent encounter

== ENCOUNTER 2020-06-01 10:59 | Emergency (ER) | payer MEDICARE, OTHER ==
[2020-06-01 11:15] VITALS: BP 159/87
--- NOTE | 2020-06-01 11:16 | Event Note ---
ED Screening Note Date of service: 06/01/20 Time: 11:15 ED Screening Note: Patient states he was sent here from wound care for further evaluation of his left diabetic foot wound Patient states wound has been present for 2 weeks Denies currently being on antibiotics Also has history of ESRD-dialysis last performed today Patient complains of worsening pain This initial assessment/diagnostic orders/clinical plan/treatment(s) is/are subject to change based on patients health status, clinical progression and re- assessment by fellow clinical providers in the ED. Further treatment and workup at subsequent clinical providers discretion. Patient/guardian urged not to elope from the ED as their condition may be serious if not clinically assessed and managed. Initial orders include: Labs
--- NOTE | 2020-06-01 12:20 | XRay Report ---
LEFT FOOT 3 VIEW(S) INDICATION / CLINICAL INFORMATION: diabetic foot wound COMPARISON: None available. FINDINGS: BONES / JOINT(S): No acute fracture or subluxation. Mild lucency and possible osteolysis involving th e fourth and fifth proximal phalangeal bases and metatarsal heads, concerning for osteomyelitis. MR m ay be helpful for further transition. SOFT TISSUES: Soft tissue ulceration with swelling and edema over the dorsum of the lateral forefoot. Mild diffuse soft tissue swelling is noted. Diffuse vascular calcifications are noted. ADDITIONAL FINDINGS: None. Signer Name: Ranulfo Kaba MD Signed: 06/01/2020 12:15 PM Workstation Name: [id number]
[2020-06-01 12:37] LABS: Basophils # (Auto) 0.1 K/mm3 (0.0-0.1); Eosinophils # (Auto) 0.3 K/mm3 (0.0-0.4); Eosinophils % (Auto) 2.5 % (0.0-4.3); Hematocrit 34.8 % (35.5-45.6); Hemoglobin 11.9 gm/dl (11.8-15.2); Lymphocytes # (Auto) 1.3 K/mm3 (1.2-5.4); Lymphocytes % (Auto) 13.1 % (13.4-35.0); Mean Corpuscular HGB Conc 34 % (32-34); Mean Corpuscular Volume 94 fl (84-94); Monocytes # (Auto) 1.2 K/mm3 (0.0-0.8); Monocytes % (Auto) 11.6 % (0.0-7.3); Platelet Count 291 K/mm3 (140-440); Red Blood Count 3.71 M/mm3 (3.65-5.03); Red Cell Distribution Width 13.1 % (13.2-15.2)
[2020-06-01 12:50] LABS: Albumin 3.8 g/dL (3.9-5); Calcium 8.9 mg/dL (8.4-10.2)
--- NOTE | 2020-06-01 12:55 | Emergency Department Report ---
ED General Adult HPI - General Chief complaint: Wound/Laceration Stated complaint: FOOT Time Seen by Provider: 06/01/20 11:14 Source: patient Mode of arrival: Ambulatory Limitations: Physical Limitation - History of Present Illness Initial comments: 59-year-old male, history of ESRD, diabetes, peripheral vascular disease, presents to ED for pain control. Patient was seen in wound clinic with Dr. Osman 2 days ago for debridement of left foot ulcer. Patient presents today to the ED because he states he needs something for the pain. Patient states the last time he underwent debridement, he was supposed to follow-up in 2 weeks for repeat debridement, however he did not because of the amount of pain that was induced with the procedure. Patient states he was afraid to return for more. Patient states he was not given anything for pain following his appointment 2 days ago. Patient denies any worsening of the wound, states it looks better. He denies any numbness or tingling. Denies fever. -: days(s) (2) Location: left, lower extremity Radiation: non-radiation Severity scale (0 -10): 10 Quality: aching Consistency: constant Improves with: none Worsens with: movement, other (palpation) Associated Symptoms: denies other symptoms. denies: fever/chills Treatments Prior to Arrival: none - Related Data Home Medications Medication Instructions Recorded Confirmed Last Taken AtorvaSTATin [Lipitor] 20 mg PO QHS 07/08/17 09/22/19 Unknown Gabapentin [Neurontin] 600 mg PO Q8H 07/08/17 10/05/19 10/04/19 09:00 Metoprolol Tartrate 50 mg PO BID 07/08/17 10/05/19 10/05/19 06:00 traMADoL [Ultram 50 MG tab] 50 mg PO Q6HR PRN 07/08/17 09/22/19 Unknown Sevelamer Carbonate 800 mg PO TID 09/14/19 10/05/19 10/04/19 18:00 hydrALAZINE 25 mg PO TID 09/14/19 10/05/19 10/04/19 17:00 Previous Rx's Medication Instructions Recorded Last Taken Type Clopidogrel [Plavix] 75 mg PO QDAY tablet 07/19/17 Unknown Rx Insulin Glargine [Lantus VIAL] 30 units SUB-Q QHS units 07/19/17 Unknown Rx Lispro Insulin [HumaLOG] 6 unit SUB-Q AC units 07/19/17 Unknown Rx HYDROcodone/APAP 5-325 [[place] 1 each PO Q6H PRN #24 tablet 10/05/19 Unknown Rx 5-325 mg TAB] traMADoL [Ultram] 50 mg PO Q6HR PRN #7 tablet 06/01/20 Unknown Rx Allergies Allergy/AdvReac Type Severity Reaction Status Date / Time shrimp Allergy Hives Verified 06/01/20 11:11 Iodine and Iodide Containing AdvReac Swelling Verified 06/01/20 11:11 Produc ED Review of Systems ROS: Stated complaint: FOOT Other details as noted in HPI Comment: All other systems reviewed and negative Constitutional: denies: fever Musculoskeletal: as per HPI Neurological: denies: weakness, numbness ED Past Medical Hx - Past Medical History Hx Hypertension: Yes (took antihypertensives today) Hx Heart Attack/AMI: No Hx Diabetes: Yes Hx Liver Disease: No Hx Renal Disease: Yes (M/W/F) Additional medical history: sleep apnea - Surgical History Additional Surgical History: LEFT ARM SHUNT - Social History Smoking Status: Never Smoker Substance Use Type: None - Medications Home Medications: Home Medications Medication Instructions Recorded Confirmed Last Taken Type AtorvaSTATin [Lipitor] 20 mg PO QHS 07/08/17 09/22/19 Unknown History Gabapentin [Neurontin] 600 mg PO Q8H 07/08/17 10/05/19 10/04/19 09:00 History Metoprolol Tartrate 50 mg PO BID 07/08/17 10/05/19 10/05/19 06:00 History traMADoL [Ultram 50 MG tab] 50 mg PO Q6HR PRN 07/08/17 09/22/19 Unknown History Clopidogrel [Plavix] 75 mg PO QDAY tablet 07/19/17 09/22/19 Unknown Rx Insulin Glargine [Lantus VIAL] 30 units SUB-Q QHS units 07/19/17 09/22/19 Unknown Rx Lispro Insulin [HumaLOG] 6 unit SUB-Q AC units 07/19/17 09/22/19 Unknown Rx Sevelamer Carbonate 800 mg PO TID 09/14/19 10/05/19 10/04/19 18:00 History hydrALAZINE 25 mg PO TID 09/14/19 10/05/19 10/04/19 17:00 History HYDROcodone/APAP 5-325 [[place] 1 each PO Q6H PRN #24 tablet 10/05/19 Unknown Rx 5-325 mg TAB] traMADoL [Ultram] 50 mg PO Q6HR PRN #7 tablet 06/01/20 Unknown Rx ED Physical Exam - General Limitations: Physical Limitation General appearance: alert, in no apparent distress - Head Head exam: Present: atraumatic, normocephalic - Eye Eye exam: Present: normal appearance, EOMI - ENT ENT exam: Present: mucous membranes moist - Neck Neck exam: Present: normal inspection - Respiratory Respiratory exam: Present: normal lung sounds bilaterally. Absent: respiratory distress - Cardiovascular Cardiovascular Exam: Present: regular rate, normal rhythm - GI/Abdominal GI/Abdominal exam: Absent: distended ED Course Vital Signs 06/01/20 11:13 Temperature 98.1 F Pulse Rate 85 Respiratory 20 Rate Blood Pressure 159/87 [Right] O2 Sat by Pulse 97 Oximetry ED Medical Decision Making - Lab Data Result diagrams: 06/01/20 11:52 06/01/20 11:52 - Medical Decision Making 59-year-old male presents to ED with left foot pain following debridement procedure 2 days ago. Vital signs are normal. Labs are unremarkable. Patient states the appearance of his wound actually looks better following debridement. He denies any fever. Patient given Ultram here in the ED. Will give prescription for Ultram to go home on. Return precautions given. Critical care attestation.: If time is entered above; I have spent that time in minutes in the direct care of this critically ill patient, excluding procedure time. ED Disposition Clinical Impression: Foot pain, left Disposition: DC-01 TO HOME OR SELFCARE Is pt being admited?: No Condition: Stable Instructions: Foot Pain Prescriptions: traMADoL [Ultram] 50 mg PO Q6HR PRN #7 tablet PRN Reason: Pain Referrals: PRIMARY CARE, [Primary Care Provider] - 3-5 Days Time of Disposition: 12:58
[2020-06-01] MEDS ORDERED: traMADol 50 MG TAB PO ONE (12:56)
== END 2020-06-01 13:26 | disposition home or self-care (01) ==
LOC: ED 10:59
DX: M79.672 Pain in left foot (principal); I10 Essential (primary) hypertension; E11.9 Type 2 diabetes mellitus without complications; Z79.899 Other long term (current) drug therapy
CPT/HCPCS: 36415; 80053; 82140; 85025; 99283

== ENCOUNTER 2020-06-06 13:55 | Outpatient (CLI) | payer MEDICARE, OTHER ==
[2020-06-06] MEDS ORDERED: LIDOCAINE (4%) 40 MG/ML TOPICAL SOLN 50 ML BOTTLE TP ONE (14:42)
== END 2020-06-06 13:56 | disposition home or self-care (01) ==
LOC: WOUND 13:55
PROVIDERS: ATTEND Surgery
DX: E11.621 Type 2 diabetes mellitus with foot ulcer (principal); L97.522 Non-pressure chronic ulcer of other part of left foot with fat layer exposed; S91.302D Unspecified open wound, left foot, subsequent encounter; I70.234 Atherosclerosis of native arteries of right leg with ulceration of heel and midfoot; L97.411 Non-pressure chronic ulcer of right heel and midfoot limited to breakdown of skin; E11.51 Type 2 diabetes mellitus with diabetic peripheral angiopathy without gangrene; I10 Essential (primary) hypertension; G47.30 Sleep apnea, unspecified; Z99.2 Dependence on renal dialysis; X58.XXXD Exposure to other specified factors, subsequent encounter
CPT/HCPCS: 99214; G0463

== ENCOUNTER 2020-07-11 14:12 | Outpatient (CLI) | payer OTHER, MEDICARE ==
[2020-07-11] MEDS ORDERED: LIDOCAINE (4%) 40 MG/ML TOPICAL SOLN 50 ML BOTTLE TP ONE (15:00)
== END 2020-07-11 14:13 | disposition home or self-care (01) ==
LOC: WOUND 14:12
PROVIDERS: ATTEND Surgery
DX: E11.621 Type 2 diabetes mellitus with foot ulcer (principal); L97.522 Non-pressure chronic ulcer of other part of left foot with fat layer exposed; S91.302D Unspecified open wound, left foot, subsequent encounter; I70.234 Atherosclerosis of native arteries of right leg with ulceration of heel and midfoot; L97.411 Non-pressure chronic ulcer of right heel and midfoot limited to breakdown of skin; E11.51 Type 2 diabetes mellitus with diabetic peripheral angiopathy without gangrene; I10 Essential (primary) hypertension; L84 Corns and callosities; G47.30 Sleep apnea, unspecified; Z99.2 Dependence on renal dialysis; X58.XXXD Exposure to other specified factors, subsequent encounter

== ENCOUNTER 2020-07-25 12:09 | Outpatient (CLI) | payer OTHER, MEDICARE ==
[2020-07-25] MEDS ORDERED: LIDOCAINE (4%) 40 MG/ML TOPICAL SOLN 50 ML BOTTLE TP ONE (13:16)
== END 2020-07-25 12:10 | disposition home or self-care (01) ==
LOC: WOUND 12:09
PROVIDERS: ATTEND Surgery
DX: E11.621 Type 2 diabetes mellitus with foot ulcer (principal); I70.245 Atherosclerosis of native arteries of left leg with ulceration of other part of foot; L97.525 Non-pressure chronic ulcer of other part of left foot with muscle involvement without evidence of necrosis; I70.234 Atherosclerosis of native arteries of right leg with ulceration of heel and midfoot; L97.411 Non-pressure chronic ulcer of right heel and midfoot limited to breakdown of skin; S91.302D Unspecified open wound, left foot, subsequent encounter; E11.51 Type 2 diabetes mellitus with diabetic peripheral angiopathy without gangrene; I10 Essential (primary) hypertension; L84 Corns and callosities; G47.30 Sleep apnea, unspecified; Z99.2 Dependence on renal dialysis; X58.XXXD Exposure to other specified factors, subsequent encounter

== ENCOUNTER 2020-09-19 13:26 | Outpatient (CLI) | payer OTHER, MEDICARE | END 2020-09-19 13:27 | disposition home or self-care (01) | LOC: WOUND 13:26 | PROVIDERS: ATTEND Surgery | DX: E11.621 Type 2 diabetes mellitus with foot ulcer (principal); L97.522 Non-pressure chronic ulcer of other part of left foot with fat layer exposed; S91.302D Unspecified open wound, left foot, subsequent encounter; I10 Essential (primary) hypertension; L84 Corns and callosities; G47.30 Sleep apnea, unspecified; Z99.2 Dependence on renal dialysis; X58.XXXD Exposure to other specified factors, subsequent encounter | CPT/HCPCS: 11042; 11720; G0463; 99212 ==

== ENCOUNTER 2021-11-07 09:42 | Inpatient (IN) | payer MEDICARE ==
[2021-11-07] MEDS ORDERED: methylPREDNISolone Sod Succinate 125 MG/2 ML INJ IV NR (10:44)
[2021-11-07] MEDS ORDERED: diphenhydrAMINE 50 MG/ML VIAL IV NR (10:44)
[2021-11-07] MEDS ORDERED: FAMOTIDINE 20 MG/2 ML INJ IV NR (10:46)
[2021-11-07] MEDS ORDERED: SODIUM CHLORIDE 0.9% 500 ML 500 ML IV SCH (11:00)
[2021-11-07 11:56] LABS: Calcium 9.1 mg/dL (8.4-10.2)
[2021-11-07] MEDS ORDERED: HEPARIN/NS 5000 UNIT/500ML 500 ML IR ONE (13:58)
[2021-11-07] MEDS ORDERED: HEPARIN 10,000 UNITS/10 ML VIAL ONE (13:58)
[2021-11-07] MEDS ORDERED: LIDOCAINE 2%/EPINEPHRINE 1:200,000 VIAL (20 ML) INFILTRATI ONE (13:59)
[2021-11-07] MEDS ORDERED: MIDAZOLAM 2 MG/2 ML INJ ONE (14:17)
[2021-11-07] MEDS ORDERED: fentaNYL 100 MCG/2 ML INJ ONE (14:17)
[2021-11-07] MEDS ORDERED: SODIUM CHLORIDE IRRI 500 ML 0 ML IR ONE (14:35)
[2021-11-07] MEDS ORDERED: SODIUM CHLORIDE 0.9% 500 ML 500 ML ONE (14:36)
--- NOTE | 2021-11-07 14:37 | History and Physical Report ---
History of Present Illness Chief complaint: I need dialysis History of present illness: 61 YO Male with ESRD on HD(M,W,F), PVD, HLD, HTN admitted directly for revision of thrombosed AV fistula as well as severe hyperkalemia. Patient found to have potassium of 7.2 and in need of urgent dialysis. Patient taken to the operating room by vascular surgery team and underwent emergency dialysis access placement. Patient admitted to telemetry due to increased risk of worsening symptoms after medical stabilization. Patient has fever, chills, chest pain, palpitation, adductive cough, skin rash, recent contact, or known exposure to COVID-19. Prior admission on 02/14/2019 reviewed. All medication listed at time of adm ission as reconciled. Advanced care planning conducted in ED. Nephrology team consulted for urgent dialysis. Past History Past Medical History: ESRD, hypertension, hyperlipidemia, PVD Past Surgical History: Other (Dialysis access) Social history: , lives with family Family history: hypertension Medications and Allergies Allergies Allergy/AdvReac Type Severity Reaction Status Date / Time Iodinated Contrast Media Allergy Angioedema Verified 11/07/21 11:07 shrimp Allergy Hives Verified 06/01/20 11:11 Home Medications Medication Instructions Recorded Confirmed Last Taken Type Gabapentin [Neurontin] 600 mg PO Q8H PRN 07/08/17 11/07/21 2 Days Ago History ~11/05/21 Metoprolol Tartrate 50 mg PO BID 07/08/17 11/07/21 11/06/21 History Lispro Insulin [HumaLOG] 6 unit SUB-Q AC units 07/19/17 11/07/21 Unknown Rx hydrALAZINE 25 mg PO TID 09/14/19 11/07/21 11/06/21 History Active Meds: Active Medications Sodium Chloride (Nacl 0.9% 500 Ml) 500 mls @ 50 mls/hr IV DIRECT CHARLES Stop: 11/07/21 18:00 Review of Systems Constitutional: no weight loss, no weight gain, no chills, no sweats Ears, nose, mouth and throat: no ear pain, no ear discharge, no tinnitis, no decreased hearing, no nasal discharge Cardiovascular: no chest pain, no palpitations, no syncope Respiratory: no cough with sputum, no excessive sputum, no hemoptysis, no shortness of breath, no dyspnea on exertion Gastrointestinal: no abdominal pain, no nausea, no diarrhea, no constipation Genitourinary Male: no hematuria, no nocturia, no incontinence Rectal: no pain, no incontinence Musculoskeletal: no neck stiffness, no neck pain, no shooting arm pain, no arm numbness/tingling, no low back pain, no shooting leg pain Integumentary: no rash, no blisters Neurological: no head injury, no weakness, no numbness, no syncope, no tremors Psychiatric: no anxiety, no sleep disturbances, no suicidal ideation, no disorientation Endocrine: no heat intolerance, no polydipsia, no nocturia, no flushing Hematologic/Lymphatic: no easy bruising, no easy bleeding Allergic/Immunologic: no urticaria, no allergic rhinitis, no wheezing Exam - Constitutional Vitals: Temp Pulse Resp BP Pulse Ox 98.2 F 79 18 141/57 97 11/07/21 10:43 11/07/21 10:43 11/07/21 10:50 11/07/21 10:43 11/07/21 10:55 General appearance: Present: mild distress, obese - EENT Eyes: Present: PERRL ENT: hearing intact, clear oral mucosa - Neck Neck: Present: supple, normal ROM - Respiratory Respiratory effort: normal Respiratory: bilateral: CTA - Cardiovascular Heart Sounds: Present: S1 & S2. Absent: rub, click - Extremities Extremities: pulses symmetrical, No edema Peripheral Pulses: within normal limits - Abdominal General gastrointestinal: Present: soft, non-tender, non-distended, normal bowel sounds Male genitourinary: Present: normal - Integumentary Integumentary: Present: clear, warm, dry - Musculoskeletal Musculoskeletal: gait normal, strength equal bilaterally - Psychiatric Psychiatric: appropriate mood/affect, intact judgment & insight - Neurologic Neurologic: CNII-XII intact, moves all extremities Results - Labs CBC & Chem 7: 11/07/21 13:25 Labs: Abnormal lab results 11/07/21 11/07/21 Range/Units 11:28 13:25 Potassium 6.8 H* 7.2 H* (3.6-5.0) mmol/L BUN 97 H (9-20) mg/dL Creatinine 17.2 H (0.8-1.3) mg/dL Glucose 104 H (75-100) mg/dL Assessment and Plan - Patient Problems (1) End stage renal disease Current Visit: Yes Status: Acute Plan to address problem: Nephrology team consulted, dialysis per renal team, strict I's/O, avoid nephrotoxic agents. (2) Hyperkalemia Current Visit: Yes Status: Acute Plan to address problem: Calcium gluconate, Kayexalate, BMP, repeat BMP in a.m., serial EKG. (3) Hemodialysis AV fistula thrombosis Current Visit: Yes Status: Acute Qualifiers: Encounter type: initial encounter Qualified Code(s): T82.868A - Thrombosis due to vascular prosthetic devices, implants and grafts, initial encounter Plan to address problem: Vascular surgery team consulted. Further care and evaluation as per vascular surgery team. (4) Hypertension Current Visit: Yes Status: Acute Qualifiers: Hypertension type: primary hypertension Qualified Code(s): I10 - Essential (primary) hypertension Plan to address problem: Monitor blood pressure every shift, continue medical management. (5) Peripheral vascular disease Current Visit: Yes Status: Acute Plan to address problem: Vascular surgery consulted, continue current management. (6) Obesity hypoventilation syndrome Current Visit: Yes Status: Acute Plan to address problem: Balanced diet, increase physical activity at discharge. (7) DVT prophylaxis Current Visit: Yes Status: Acute Plan to address problem: SCD to bilateral lower extremities while in bed (8) Advance care planning Current Visit: Yes Status: Acute Plan to address problem: Disease education done, care plan discussed, diagnoses discussed, prognosis discussed, patient is full code, +30 minutes. (9) Preventative health care Current Visit: Yes Status: Acute Plan to address problem: Patient counseled regarding risk factor reduction, balanced diet, regular physical activity discharge, +30 minutes. Patient instructed to follow-up with primary care physician for all age and risk factor appropriate screening test. +30 minutes.
[2021-11-07] MEDS ORDERED: CALCIUM GLUCONATE 2,000 MG in SODIUM CHLORIDE 0.9% 100 ML IV NR (14:42)
[2021-11-07] MEDS ORDERED: NON-FORMULARY EACH (Gabapentin [Neurontin] 600 MG Tablet) PO PRN (14:44)
--- NOTE | 2021-11-07 14:46 | Operative Report ---
Operative Report Operative Report: EXAM: 1. Ultrasound-guided puncture of the right internal jugular vein 2. Venography of the right internal jugular vein 3. Ultrasound-guided puncture of the right external jugular vein 4. Venography of the right external jugular vein 5. Ultrasound-guided access of the left internal jugular vein 6. Fluoroscopic guided placement of a 13 cm triple-lumen dialysis catheter, 20 cm DATE: 11/07/2021 INDICATION: Hyperkalemia with end-stage renal disease requiring hemodialysis. MEDICATIONS: Please see nursing report for full details. DEVICES: 20 cm triple lumen hemodialysis catheter TOOL LATHE OPERATOR: COTY ORTEGA MD CONTRAST: None PROCEDURE: The risks, benefits, and alternatives were discussed and informed consent was obtained. The patient was transported to the angiography suite in satisfactory/stable condition and was transported onto the angiography table. The patient was prepped and draped in a sterile fashion. The puncture site was anesthetized. The right internal jugular vein was patent on ultrasound. Under sonographic guidance, the right internal jugular vein was punctured with a 21-gauge micropuncture needle and a 0.018 inch wire was advanced through the needle. The wire would not pass into the IVC. Transitional dilator was advanced over the wire and digital subtraction angiography was performed confirming position in the internal jugular vein with occlusion of the central portion of the internal jugular vein with large collaterals around this area. 0.035 inch Glidewire was attempted to recanalize the vein but this was unsuccessful. The right external jugular vein was patent on ultrasound. Under sonographic guidance, the right external jugular vein was punctured with a 21-gauge micropuncture needle and a 0.018 inch wire was passed through the needle. The wire would not pass into the IVC. Transitional dilator was expanse over the wire and digital subtraction angiography was performed confirming position in the right external jugular vein. The right external jugular vein communicated with the right internal jugular vein for common outflow. The internal jugular vein outflow was occluded centrally as described above. The external jugular vein was patent. At this point all wires and transitional dilators were removed and pressure was held until hemostasis was achieved. At this point, attention was paid to the left neck. Left neck was prepped and draped in sterile fashion. The puncture site was anesthetized. The left internal jugular vein was patent on ultrasound. Under sonographic guidance, the left internal jugular vein was punctured with a 21-gauge micropuncture needle and a 0.018 inch wire was advanced through the needle. The wire passed into the SVC and the IVC. Needle was exchanged for transitional dilator. Wire was exchanged for a 0.035 inch wire passed into the IVC. Over the 0.035 inch wire, serial dilatation was performed. The catheter was advanced over the wire and positioned centrally under fluoroscopic guidance. 2-0 Ethilon suture was used to secure the catheter. The dialysis lumens of the catheter were charged with heparin 1000 units/mL of space. The central lumen was charged with heparinized saline and one-way valve was attached. The tip of the catheter is in the proximal right atrium. Biopatch and sterile dressing applied. The patient was transferred from the angiography suite back to the recovery area in stable condition. FINDINGS: 1. Please see procedure note above. IMPRESSION: 1. Successful sonographically and fluoroscopically guided placement of a left internal jugular nontunneled noncuffed hemodialysis catheter. 2. Successful sonographic guided access of the right internal jugular vein with venography. 3. Successful sonographic guided access of the right external jugular vein with venography.
[2021-11-07] MEDS ORDERED: diphenhydrAMINE 50 MG/ML VIAL ONE (14:54)
[2021-11-07] MEDS ORDERED: HYDROCORTISONE SOD SUCC 100 MG/2 ML VIAL ONE (14:55)
[2021-11-07] MEDS ORDERED: methylPREDNISolone Sod Succinate 125 MG/2 ML INJ ONE (14:56)
[2021-11-07] MEDS ORDERED: SODIUM CHLORIDE 0.9% 100 ML IV PRN (15:06)
--- NOTE | 2021-11-07 15:06 | Consultation ---
History of Present Illness - Reason for Consult Consult date: 11/07/21 end stage renal disease, hyperkalemia - History of Present Illness The patient is a 61 YO AAM known to our service with history notable for Morbid obesity, DM-2, Hypertension, Anemia, R leg wound and ESRD on hemodialysis (MWF) who presented to [facility] ED 11/07/21 with malfunctioning AVF. Patient missed HD yesterday due to above. He also reports R leg wound and pain for the past 2-3 weeks. He denies any chest pain, sob, orthopnea, cough, fever, chills, headache, dizziness, diaphoresis, N, V, D, abd pain or hemoptysis. Work-up: Potassium 6.8. Vascular consulted and patient had Vascath placed. Nephrology was consulted for ESRD management. Past History Past Medical History: other (See HPI.) Medications and Allergies Allergies Allergy/AdvReac Type Severity Reaction Status Date / Time Iodinated Contrast Media Allergy Angioedema Verified 11/07/21 11:07 shrimp Allergy Hives Verified 06/01/20 11:11 Home Medications Medication Instructions Recorded Confirmed Last Taken Type Gabapentin [Neurontin] 600 mg PO Q8H PRN 07/08/17 11/07/21 2 Days Ago History ~11/05/21 Metoprolol Tartrate 50 mg PO BID 07/08/17 11/07/21 11/06/21 History Lispro Insulin [HumaLOG] 6 unit SUB-Q AC units 07/19/17 11/07/21 Unknown Rx hydrALAZINE 25 mg PO TID 09/14/19 11/07/21 11/06/21 History Apixaban [Eliquis] 5 mg PO BID #60 11/09/21 Unknown Rx Active Meds: Active Medications Acetaminophen (Acetaminophen 325 Mg Tab) 650 mg PO Q4H PRN PRN Reason: Pain MILD(1-3)/Fever >100.5/PATTERSON Albuterol (Albuterol 2.5 Mg/3 Ml Nebu) 2.5 mg IH Q4HRT PRN PRN Reason: Shortness Of Breath Dextrose (Dextrose 50% In Water (25gm) 50 Ml Syringe) 50 ml IV Q30MIN PRN; Protocol PRN Reason: Hypoglycemia Sodium Chloride (Nacl 0.9% 500 Ml) 500 mls @ 50 mls/hr IV DIRECT CHARLES Stop: 11/07/21 18:00 Calcium Gluconate 2,000 mg/ (Sodium Chloride) 120 mls @ 660 mls/hr IV ONCE ONE Stop: 11/07/21 14:52 Insulin Human Lispro (Insulin Lispro 100 Unit/Ml) 0 unit SUB-Q Q6HR [facility]; Protocol Metoprolol Tartrate (Metoprolol Tartrate 50 Mg Tab) 50 mg PO BID [facility] Miscellaneous Medication (Gabapentin [Neurontin]) 600 mg PO Q8H PRN PRN Reason: Pain , Severe (7-10) Miscellaneous Medication (Hydralazine) 25 mg PO TID CHARLES Morphine Sulfate (Morphine 4 Mg/1 Ml Inj) 2 mg IV Q14H PRN PRN Reason: Pain , Severe (7-10) Ondansetron HCl (Ondansetron 4 Mg/2 Ml Inj) 4 mg IV Q8H PRN PRN Reason: Nausea And Vomiting Oxycodone/Acetaminophen (Oxycodone /Acetaminophen 5-325mg Tab) 1 tab PO Q6H PRN PRN Reason: Pain, Moderate (4-6) Sodium Chloride (Sodium Chloride 0.9% 10 Ml Flush Syringe) 10 ml IV BID CHARLES Sodium Chloride (Sodium Chloride 0.9% 10 Ml Flush Syringe) 10 ml IV PRN PRN PRN Reason: LINE FLUSH Sodium Polystyrene Sulfonate (Sodium Polystyrene 15 Gm/60 Ml Oral Liqd) 30 gm PO ONCE ONE Stop: 11/07/21 14:43 Review of Systems All systems: negative Exam - Vital Signs Vital signs: Vital Signs Temp Pulse Resp BP Pulse Ox 98.2 F 79 18 141/57 97 11/07/21 10:43 11/07/21 10:43 11/07/21 10:43 11/07/21 10:43 11/07/21 10:43 Results - Lab Results 11/09/21 04:42 11/09/21 04:42 Most recent lab results Calcium 9.1 mg/dL (8.4-10.2) 11/07/21 11:28 Assessment and Plan 1. ESRD: Patient is on maintenance hemodialysis, MWF schedule. Last outpatient HD 11/03. Hemodialysis: today. 2. FEN: Hyperkalemia, 2/2 missed HD, HD today. UF with HD as tolerated. Monitor lytes and volume status. 3. Malfunctioning L arm AVF: Clotted AVF. S/p Vascath. Followed by Vascular. 4. Hypertension: Continue home meds. Follow BP. 5. DM-2: Continue home meds. Monitor. 6. R leg wound: Wound care. Patient has an upcoming appt with wound care. Subjective: Patient was seen and examined at the bedside. Examination: General appearance: well-developed, well nourished, obese, appears stated age, not in distress HEENT: ENZO Neck: trachea midline Respiratory: ctab Heart: S1S2, regular, no murmur Abdomen: soft, bowel sounds heard, NT, no palpable mass Integumentary: R leg wound Neurologic: AO, non-focal Ext: R LE trace edema Hemodialysis access: L arm AVF, L IJ non-tunnel catheter
[2021-11-07] MEDS ORDERED: DEXTROSE 50% IN WATER (25GM) 50 ML SYRINGE IV PRN (16:00)
[2021-11-07] MEDS ORDERED: ALBUTEROL 2.5 MG/3 ML NEBU IH PRN (16:00)
[2021-11-07] MEDS ORDERED: HEPARIN 10,000 UNITS/10 ML VIAL IV PRN (16:00)
[2021-11-07] MEDS ORDERED: ACETAMINOPHEN 325 MG TAB PO PRN (16:00)
[2021-11-07] MEDS ORDERED: ONDANSETRON 4 MG/2 ML INJ IV PRN (16:30)
[2021-11-07] MEDS ORDERED: GABAPENTIN 300 MG CAP PO PRN (17:00)
[2021-11-07] MEDS ORDERED: SODIUM POLYSTYRENE 15 GM/60 ML ORAL LIQD PO NR (17:00)
[2021-11-07 17:25] LABS: Hepatitis B Surface Antigen Non-Reactive (Negative); Hepatitis C Virus Antibody Non-Reactive (NonReactive)
[2021-11-07] MEDS ORDERED: NON-FORMULARY EACH (Hydralazine 25 MG) PO SCH (20:00)
[2021-11-07] MEDS: METOPROLOL TARTRATE 50 MG TAB PO SCH (21:21)
[2021-11-07] MEDS: hydrALAZINE 25 MG TAB PO SCH (21:22)
[2021-11-08 00:09] LABS: Calcium 8.7 mg/dL (8.4-10.2)
[2021-11-08] MEDS ORDERED: SODIUM POLYSTYRENE 15 GM/60 ML ORAL LIQD PO ONE (00:25)
[2021-11-08] MEDS: INSULIN LISPRO 100 UNIT/ML SUB-Q SCH ×5 (00:39→18:06)
[2021-11-08] MEDS: MORPHINE 4 MG/1 ML INJ IV PRN (02:44)
[2021-11-08 05:26] LABS: Hemoglobin 14.6 gm/dl (11.8-15.2); Mean Corpuscular HGB Conc 33 % (32-34); Mean Corpuscular Volume 94 fl (84-94); Platelet Count 260 K/mm3 (140-440); Red Blood Count 4.66 M/mm3 (3.65-5.03); Red Cell Distribution Width 13.3 % (13.2-15.2)
[2021-11-08 05:43] LABS: Calcium 9.4 mg/dL (8.4-10.2)
[2021-11-08 06:22] LABS: Band Neutrophils # (Manual) 0.1 K/mm3; Basophils % (Manual) 0 % (0.0-1.8); Eosinophils % (Manual) 0 % (0.0-4.3); Platelet Estimate Consistent w Auto; Total Cells Counted 100
[2021-11-08] MEDS: hydrALAZINE 25 MG TAB PO SCH ×3 (07:20→21:07)
[2021-11-08] MEDS ORDERED: SODIUM CHLORIDE 0.9% 100 ML IV PRN (08:00)
[2021-11-08] MEDS: METOPROLOL TARTRATE 50 MG TAB PO SCH ×2 (09:21→21:06)
--- NOTE | 2021-11-08 10:34 | Progress Note ---
Assessment and Plan 1. ESRD: Patient is on maintenance hemodialysis, MWF schedule. Last outpatient HD 11/03. Hemodialysis: 11/07. HD today. 2. FEN: Hyperkalemia, HD today. UF with HD as tolerated. Monitor lytes and volume status. 3. Malfunctioning L arm AVF: Clotted AVF. S/p Vascath. Followed by Vascular. 4. Hypertension: Continue home meds. Follow BP. 5. DM-2: Continue home meds. Monitor. 6. R leg wound: Wound care. Patient has an upcoming appt with wound care. Subjective: Patient was seen and examined at the bedside. Examination: General appearance: well-developed, well nourished, obese, appears stated age, not in distress HEENT: ENZO Neck: trachea midline Respiratory: ctab Heart: S1S2, regular, no murmur Abdomen: soft, bowel sounds heard, NT, no palpable mass Integumentary: R leg wound Neurologic: AO, non-focal Ext: R LE trace edema Hemodialysis access: L arm AVF with no bruit, L IJ non-tunnel catheter Subjective Date of service: 11/08/21 Objective - Vital Signs Vital signs: Vital Signs - 12hr 11/07/21 11/08/21 11/08/21 23:01 03:37 08:21 Temperature 99.0 F 98.2 F 98.0 F Pulse Rate 77 79 Respiratory 16 19 18 Rate Blood Pressure 174/86 127/61 149/53 O2 Sat by Pulse 96 94 Oximetry - Lab 11/09/21 04:42 11/09/21 04:42 Most recent lab results Calcium 9.4 mg/dL (8.4-10.2) 11/08/21 04:56 Medications & Allergies - Medications Allergies/Adverse Reactions: Allergies Iodinated Contrast Media Allergy (Verified 11/07/21 11:07) Angioedema shrimp Allergy (Verified 06/01/20 11:11) Hives Home Medications: Home Medications Medication Instructions Recorded Confirmed Last Taken Type Gabapentin [Neurontin] 600 mg PO Q8H PRN 07/08/17 11/07/21 2 Days Ago History ~11/05/21 Metoprolol Tartrate 50 mg PO BID 07/08/17 11/07/21 11/06/21 History Lispro Insulin [HumaLOG] 6 unit SUB-Q AC units 07/19/17 11/07/21 Unknown Rx hydrALAZINE 25 mg PO TID 09/14/19 11/07/21 11/06/21 History Apixaban [Eliquis] 5 mg PO BID #60 11/09/21 Unknown Rx Active Medications: Generic Name Dose Route Start Last Admin Trade Name Freq PRN Reason Stop Dose Admin Acetaminophen 650 mg 11/07/21 16:00 Acetaminophen 325 Mg Tab PO Q4H PRN Pain MILD(1-3)/Fever >100.5/PATTERSON Albuterol 2.5 mg 11/07/21 16:00 Albuterol 2.5 Mg/3 Ml Nebu IH Q4HRT PRN Shortness Of Breath Dextrose 50 ml 11/07/21 16:00 Dextrose 50% In Water (25gm) 50 Ml Syringe IV Q30MIN PRN Hypoglycemia Protocol Gabapentin 600 mg 11/07/21 17:00 Gabapentin 300 Mg Cap PO Q8HR PRN PAIN, SEVERE (7-10) Heparin Sodium (Porcine) 3,000 unit 11/07/21 16:00 Heparin 10,000 Units/10 Ml Vial IV MOE PRN hemodialysis Hydralazine HCl 25 mg 11/07/21 20:00 11/07/21 21:22 Hydralazine 25 Mg Tab PO 25 mg TID CHARLES Administration Sodium Chloride 100 mls @ 999 mls/hr 11/08/21 08:00 Nacl 0.9% IV MOE PRN Hypotension Insulin Human Lispro 0 unit 11/07/21 18:00 11/08/21 08:02 Insulin Lispro 100 Unit/Ml SUB-Q Not Given Q6HR [facility] Protocol Metoprolol Tartrate 50 mg 11/07/21 22:00 11/07/21 21:21 Metoprolol Tartrate 50 Mg Tab PO 50 mg BID CHARLES Administration Morphine Sulfate 2 mg 11/07/21 16:30 11/08/21 02:44 Morphine 4 Mg/1 Ml Inj IV 2 mg Q14H PRN Administration Pain , Severe (7-10) Ondansetron HCl 4 mg 11/07/21 16:30 Ondansetron 4 Mg/2 Ml Inj IV Q8H PRN Nausea And Vomiting Oxycodone/Acetaminophen 1 tab 11/07/21 17:00 Oxycodone /Acetaminophen 5-325mg Tab PO Q6H PRN Pain, Moderate (4-6) Sodium Chloride 10 ml 11/07/21 22:00 11/07/21 21:25 Sodium Chloride 0.9% 10 Ml Flush Syringe IV 10 ml BID CHARLES Administration Sodium Chloride 10 ml 11/07/21 16:00 Sodium Chloride 0.9% 10 Ml Flush Syringe IV 11/12/21 15:59 PRN PRN LINE FLUSH
[2021-11-08] MEDS ORDERED: diphenhydrAMINE 50 MG/ML VIAL IV NR (11:21)
[2021-11-08] MEDS ORDERED: FAMOTIDINE 20 MG/2 ML INJ IV NR (11:22)
[2021-11-08] MEDS ORDERED: HEPARIN/NS 5000 UNIT/500ML 500 ML IR ONE ×4 (11:24→13:18)
[2021-11-08] MEDS: fentaNYL 100 MCG/2 ML INJ ONE ×4 (11:55→13:59)
[2021-11-08] MEDS: LIDOCAINE (2%) 20 MG/1 ML VIAL 20 ML MDV INFILTRATI ONE ×2 (11:56→12:03)
[2021-11-08] MEDS: MIDAZOLAM 2 MG/2 ML INJ ONE ×4 (11:56→13:59)
[2021-11-08] MEDS ORDERED: methylPREDNISolone Sod Succinate 125 MG/2 ML INJ IV NR (12:00)
[2021-11-08] MEDS ORDERED: WATER FOR INJ Sterile (PF) 10 ML ONE ×2 (12:04→13:43)
[2021-11-08] MEDS: ALTEPLASE 2 MG INJ ONE ×2 (12:09→12:33)
--- NOTE | 2021-11-08 12:13 | Progress Note ---
Assessment and Plan Assessment and plan: 61 YO Male with ESRD on HD(M,W,F), PVD, HLD, HTN admitted directly for revision of thrombosed AV fistula as well as severe hyperkalemia. Patient found to have potassium of 7.2 and in need of urgent dialysis. ESRD Hyperkalemia HD AV fistula thrombosis Hypertension PVD OHS 11/08/2021. The patient underwent emergency dialysis access placement yesterday. Patient underwent hemodialysis without complications. Patient for thrombolysis of AV fistula today. History Interval history: No new issues overnight Hospitalist Physical - Constitutional Vitals: Temp Pulse Resp BP Pulse Ox 98.0 F 83 18 149/53 94 11/08/21 08:21 11/08/21 07:55 11/08/21 08:21 11/08/21 08:21 11/08/21 03:37 General appearance: Present: no acute distress, obese - EENT Eyes: Present: PERRL, EOM intact ENT: hearing intact, clear oral mucosa, dentition normal - Neck Neck: Present: supple, normal ROM - Respiratory Respiratory effort: normal Respiratory: bilateral: CTA - Cardiovascular Rhythm: regular Heart Sounds: Present: S1 & S2. Absent: gallop, rub - Extremities Extremities: no ischemia, No edema, Full ROM - Abdominal General gastrointestinal: soft, non-tender, non-distended, normal bowel sounds - Integumentary Integumentary: Present: clear, warm, dry - Neurologic Neurologic: CNII-XII intact, moves all extremities Results - Labs CBC & Chem 7: 11/08/21 04:56 11/08/21 04:56 Labs: Laboratory Last Values WBC 9.4 K/mm3 (4.5-11.0) 11/08/21 04:56 RBC 4.66 M/mm3 (3.65-5.03) 11/08/21 04:56 Hgb 14.6 gm/dl (11.8-15.2) 11/08/21 04:56 Hct 44.0 % (35.5-45.6) 11/08/21 04:56 MCV 94 fl (84-94) 11/08/21 04:56 MCH 31 pg (28-32) 11/08/21 04:56 MCHC 33 % (32-34) 11/08/21 04:56 RDW 13.3 % (13.2-15.2) 11/08/21 04:56 Plt Count 260 K/mm3 (140-440) 11/08/21 04:56 Add Manual Diff Complete 11/08/21 04:56 Total Counted 100 11/08/21 04:56 Seg Neutrophils % Associate Store Director 11/08/21 04:56 Seg Neuts % (Manual) 98.0 % (40.0-70.0) H 11/08/21 04:56 Band Neutrophils % 1.0 % 11/08/21 04:56 Lymphocytes % (Manual) 0 % (13.4-35.0) L 11/08/21 04:56 Reactive Lymphs % (Man) 0 % 11/08/21 04:56 Monocytes % (Manual) 1.0 % (0.0-7.3) 11/08/21 04:56 Eosinophils % (Manual) 0 % (0.0-4.3) 11/08/21 04:56 Basophils % (Manual) 0 % (0.0-1.8) 11/08/21 04:56 Metamyelocytes % 0 % 11/08/21 04:56 Myelocytes % 0 % 11/08/21 04:56 Promyelocytes % 0 % 11/08/21 04:56 Blast Cells % 0 % 11/08/21 04:56 Nucleated RBC % Not Reportable 11/08/21 04:56 Seg Neutrophils # Man 9.2 K/mm3 (1.8-7.7) H 11/08/21 04:56 Band Neutrophils # 0.1 K/mm3 11/08/21 04:56 Lymphocytes # (Manual) 0.0 K/mm3 (1.2-5.4) L 11/08/21 04:56 Abs React Lymphs (Man) 0.0 K/mm3 11/08/21 04:56 Monocytes # (Manual) 0.1 K/mm3 (0.0-0.8) 11/08/21 04:56 Eosinophils # (Manual) 0.0 K/mm3 (0.0-0.4) 11/08/21 04:56 Basophils # (Manual) 0.0 K/mm3 (0.0-0.1) 11/08/21 04:56 Metamyelocytes # 0.0 K/mm3 11/08/21 04:56 Myelocytes # 0.0 K/mm3 11/08/21 04:56 Promyelocytes # 0.0 K/mm3 11/08/21 04:56 Blast Cells # 0.0 K/mm3 11/08/21 04:56 WBC Morphology Not Reportable 11/08/21 04:56 Hypersegmented Neuts Not Reportable 11/08/21 04:56 Hyposegmented Neuts Not Reportable 11/08/21 04:56 Hypogranular Neuts Not Reportable 11/08/21 04:56 Smudge Cells Not Reportable 11/08/21 04:56 Toxic Granulation Not Reportable 11/08/21 04:56 Toxic Vacuolation Not Reportable 11/08/21 04:56 Dohle Bodies Not Reportable 11/08/21 04:56 Pelger-Huet Anomaly Not Reportable 11/08/21 04:56 Bryan Rods Not Reportable 11/08/21 04:56 Platelet Estimate Consistent w auto 11/08/21 04:56 Clumped Platelets Not Reportable 11/08/21 04:56 Plt Clumps, EDTA Not Reportable 11/08/21 04:56 Large Platelets Not Reportable 11/08/21 04:56 Giant Platelets Not Reportable 11/08/21 04:56 Platelet Satelliting Not Reportable 11/08/21 04:56 Plt Morphology Comment Not Reportable 11/08/21 04:56 RBC Morphology Not Reportable 11/08/21 04:56 Dimorphic RBCs Not Reportable 11/08/21 04:56 Polychromasia Not Reportable 11/08/21 04:56 Hypochromasia Not Reportable 11/08/21 04:56 Poikilocytosis Not Reportable 11/08/21 04:56 Anisocytosis Not Reportable 11/08/21 04:56 Microcytosis Not Reportable 11/08/21 04:56 Macrocytosis Not Reportable 11/08/21 04:56 Spherocytes Not Reportable 11/08/21 04:56 Pappenheimer Bodies Not Reportable 11/08/21 04:56 Sickle Cells Not Reportable 11/08/21 04:56 Target Cells Not Reportable 11/08/21 04:56 Tear Drop Cells Not Reportable 11/08/21 04:56 Ovalocytes Not Reportable 11/08/21 04:56 Helmet Cells Not Reportable 11/08/21 04:56 Giraldo-Cankton Bodies Not Reportable 11/08/21 04:56 Sherman Rings Not Reportable 11/08/21 04:56 Katerina Cells Not Reportable 11/08/21 04:56 Bite Cells Not Reportable 11/08/21 04:56 Crenated Cell Not Reportable 11/08/21 04:56 Elliptocytes Not Reportable 11/08/21 04:56 Acanthocytes (Spur) Not Reportable 11/08/21 04:56 Rouleaux Not Reportable 11/08/21 04:56 Hemoglobin C Crystals Not Reportable 11/08/21 04:56 Schistocytes Not Reportable 11/08/21 04:56 Malaria parasites Not Reportable 11/08/21 04:56 Noe Bodies Not Reportable 11/08/21 04:56 Hem Pathologist Commnt No 11/08/21 04:56 Sodium 139 mmol/L (137-145) 11/08/21 04:56 Potassium 5.4 mmol/L (3.6-5.0) H 11/08/21 04:56 Chloride 96.6 mmol/L (98-107) L 11/08/21 04:56 Carbon Dioxide 23 mmol/L (22-30) 11/08/21 04:56 Anion Gap 25 mmol/L 11/08/21 04:56 BUN 62 mg/dL (9-20) H 11/08/21 04:56 Creatinine 12.7 mg/dL (0.8-1.3) H 11/08/21 04:56 Estimated GFR 5 ml/min 11/08/21 04:56 BUN/Creatinine Ratio 5 % 11/08/21 04:56 Glucose 129 mg/dL (75-100) H 11/08/21 04:56 POC Glucose 161 mg/dL (70-105) H 11/08/21 05:23 Calcium 9.4 mg/dL (8.4-10.2) 11/08/21 04:56 Hepatitis A IgM Ab Non-reactive (NonReactive) 11/07/21 16:40 Hep Bs Antigen Non-reactive (Negative) 11/07/21 16:40 Hep B Core IgM Ab Non-reactive (NonReactive) 11/07/21 16:40 Hepatitis C Antibody Non-reactive (NonReactive) 11/07/21 16:40 Muñoz/IV: Voiding Method Toilet Active Medications - Current Medications Current Medications: Generic Name Dose Route Start Last Admin Trade Name Freq PRN Reason Stop Dose Admin Acetaminophen 650 mg 11/07/21 16:00 Acetaminophen 325 Mg Tab PO Q4H PRN Pain MILD(1-3)/Fever >100.5/PATTERSON Albuterol 2.5 mg 11/07/21 16:00 Albuterol 2.5 Mg/3 Ml Nebu IH Q4HRT PRN Shortness Of Breath Dextrose 50 ml 11/07/21 16:00 Dextrose 50% In Water (25gm) 50 Ml Syringe IV Q30MIN PRN Hypoglycemia Protocol Diphenhydramine HCl 25 mg 11/08/21 11:21 11/08/21 11:37 Diphenhydramine 50 Mg/Ml Vial IV 11/08/21 12:30 25 mg ONCE NR Administration Famotidine 20 mg 11/08/21 11:22 11/08/21 11:38 Famotidine 20 Mg/2 Ml Inj IV 11/08/21 13:00 20 mg ONCE NR Administration Gabapentin 600 mg 11/07/21 17:00 Gabapentin 300 Mg Cap PO Q8HR PRN PAIN, SEVERE (7-10) Heparin Sodium (Porcine) 3,000 unit 11/07/21 16:00 Heparin 10,000 Units/10 Ml Vial IV MOE PRN hemodialysis Hydralazine HCl 25 mg 11/07/21 20:00 11/07/21 21:22 Hydralazine 25 Mg Tab PO 25 mg TID CHARLES Administration Sodium Chloride 100 mls @ 999 mls/hr 11/08/21 08:00 Nacl 0.9% IV MOE PRN Hypotension Insulin Human Lispro 0 unit 11/07/21 18:00 11/08/21 08:02 Insulin Lispro 100 Unit/Ml SUB-Q Not Given Q6HR CHARLES Protocol Methylprednisolone Sodium Succinate 125 mg 11/08/21 12:00 11/08/21 11:38 Methylprednisolone Sod Succinate 125 Mg/2 Ml Inj IV 11/08/21 13:00 125 mg PREOP NR Administration Metoprolol Tartrate 50 mg 11/07/21 22:00 11/07/21 21:21 Metoprolol Tartrate 50 Mg Tab PO 50 mg BID CHARLES Administration Morphine Sulfate 2 mg 11/07/21 16:30 11/08/21 02:44 Morphine 4 Mg/1 Ml Inj IV 2 mg Q14H PRN Administration Pain , Severe (7-10) Ondansetron HCl 4 mg 11/07/21 16:30 Ondansetron 4 Mg/2 Ml Inj IV Q8H PRN Nausea And Vomiting Oxycodone/Acetaminophen 1 tab 11/07/21 17:00 Oxycodone /Acetaminophen 5-325mg Tab PO Q6H PRN Pain, Moderate (4-6) Sodium Chloride 10 ml 11/07/21 22:00 11/07/21 21:25 Sodium Chloride 0.9% 10 Ml Flush Syringe IV 10 ml BID CHARLES Administration Sodium Chloride 10 ml 11/07/21 16:00 Sodium Chloride 0.9% 10 Ml Flush Syringe IV 11/12/21 15:59 PRN PRN LINE FLUSH
[2021-11-08] MEDS: HEPARIN 10,000 UNITS/10 ML VIAL ONE ×3 (12:41→13:59)
[2021-11-08] MEDS ORDERED: hydrALAZINE 20 MG/1 ML INJ ONE (12:43)
[2021-11-08] MEDS ORDERED: ALTEPLASE 2 MG INJ ONE (13:43)
--- NOTE | 2021-11-08 14:45 | Operative Report ---
Operative Report Operative Report: Date of Procedure: 11/08/2021 Pre-operative Diagnosis: Complications of Dialysis Access Post-operative Diagnosis: Same Procedure(s): 1. Access Left Arm AV Fistula with 7 Polish Sheath Venous 2. Access Left Arm AV Fistula with 6 Polish Sheath Arterial 3. Diagnostic Fistulogram with Central Venogram 4. Angioplasty and Stent of Left Arm Arteriovenous Fistula with 8 x 10 [place] Balloon, 10 x 40 [place] Balloon, 8 x 5 cm Viabahn Stent Graft, 8 x 10 cm Viabahn Stent Graft, and 10 x 60 Covera Stent Graft 5. Percutaneous PharmacoMechanical Thrombectomy with a total of 10 mg of tPA, Ships Or Barges Loader Device, AngioJet Aspiration Catheter, and Penumbra CAT 7 Indigo Lightening Aspiration Catheter 6. Radiologic Supervision with Interpretation 7. Monitored Moderate Sedation (Total Anesthesia Time: 136 Minutes) Surgeon: Terry Akhtar M.D. Emission Specialist: None Anesthesia: Local/Monitored Moderate Sedation Total Anesthesia Time: 136 Minutes EBL: Minimal Counts: Correct Complications: None Condition: Stable Specimen: None Indication: The patient is a 61-year-old male with a history of end-stage renal disease who was on hemodialysis through a left brachiocephalic arteriovenous fistula. He presented with complaints of a thrombosed fistula and was scheduled for a percutaneous mechanical thrombectomy however his labs revealed hyperkalemia which prompted placement of a Vas-Cath for urgent dialysis. He now returns for a fistulogram with possible intervention. He was given the risk, benefits, and alternative procedures and consented to the procedure. Angiographic Findings: The diagnostic fistulogram revealed the arterial inflow of the fistula was patent without significant thrombus however there was approximately 50% stenosis. Because of the outflow occlusion contrast refluxed into the brachial artery which revealed approximately 65 to 70% stenosis of the arterial anastomosis however had the appearance of banding. The brachial artery was patent without evidence of thrombus or flow-limiting stenosis. There were 2 pseudoaneurysms in the cannulation zone of the fistula with the significant thrombus burden. It was not evident initially however after reducing the thrombus burden there was approximately 95% stenosis between the 2 pseudoaneurysms. Additionally there was approximately 60% stenosis in a short segment of the venous outflow distal to the second pseudoaneurysm. There was 85% stenosis in a short segment of the cephalic arch and the remainder of the arch was patent without evidence of flow-limiting stenosis. Thrombus extended into the cephalic arch however not past the cephalic arch stenosis. The central venous system was patent without evidence of flow-limiting stenosis or thrombus. After intervention the fistula was patent with less than 15% residual stenosis. There was residual thrombus within the larger of the 2 pseudoaneurysms, that was closer to the arterial inflow, however this was minimal and not flow-limiting. I did not intervene on the stenosis within the arterial anastomosis as the patient had a robust thrill with brisk flow of contrast throughout. Description of Procedure: The patient was brought to the Pressure Dispatcher and laid in supine position. After a timeout was performed his left arm was prepped and draped in normal sterile fashion. Lidocaine was used anesthetize the skin and soft tissue overlying the fistula, near the arterial inflow, and a 21-gauge micropuncture needle was used to access the fistula towards the venous outflow. A 0.018 micropuncture wire was advanced into the fistula and after removing the needle a 7 Polish sheath was placed by Seldinger technique. I performed a fistulogram which revealed the occlusion secondary to thrombus within the pseudoaneurysm as well as the previously noted findings within the arterial inflow. I made multiple attempts with catheters and wires to traverse the pseudoaneurysm and the areas of stenosis however this was unsuccessful. I then anesthetized the skin and soft tissue overlying the fistula, near the venous outflow, and used a 21-gauge micropuncture needle to access the fistula towards the arterial inflow. I then removed the needle and placed a 6 Polish sheath by Seldinger technique. At this point I systemically heparinized the patient with 6000 units of heparin IV and this was redosed at with 1 to 2000 units of heparin IV, every 40 minutes, until the completion of the case. I injected 6 mg of tPA into the pseudoaneurysm and allow this to dwell for approximately 10 minutes and then advanced a bus cleaner device into the larger of the 2 pseudoaneurysms and used it to morcellate thrombus. After doing this I was able to advance a catheter and wire from the venous outflow pseudoaneurysm and cannulate the 7 Polish sheath within the arterial inflow of the fistula. Once I did this I slightly pulled the 6 Polish sheath back and predilated the area of stenosis with a 6 x 80 Dioni balloon. I then advanced the catheter over the wire that was now through and through each sheath and exchanged it for a Bentson wire. I then used an AngioJet catheter in an attempt to aspirate thrombus from areas of pseudoaneurysm. This proved not to be successful so I used a Penumbra CAT 7 Indigo Lightening Aspiration Catheter to further aspirate thrombus which significantly decreased thrombus burden. I was then able to use a 0.018 Gladius Wire and catheter to traverse the areas of stenosis near the pseudoaneurysms and into the cephalic arch. I performed further venograms demonstrating the previously described findings. I advanced a 0.035 glide advantage wire into the central venous system and then performed angioplasty of all areas of stenosis within the fistula, except the arterial anastomosis, with an 8 x 100 [place] balloon. This resulted in recoil of the cephalic arch lesion with no significant change in the degree of stenosis as well as recoil of the areas of stenosis between and just distal to the pseudoaneurysms. At this point I decided to place a stent graft in the areas of stenosis with coverage of the venous outflow pseudoaneurysm. I exchanged my wire to a 0.018V 18 wire and then deployed an 8 x 10 cm Viabahn Stent Graft across the area of stenosis between the 2 pseudoaneurysms as well as the outflow. This covered the 6 Polish sheath so after deploying the stent graft I removed the sheath. I postdilated the stent graft with the 8 x 10 [place] Balloon which resulted in less than 15% residual stenosis. I then deployed the stent graft across the area of stenosis within the cephalic arch and postdilated with a [place] balloon resulted in less than 15% residual stenosis. I exchanged the V 18 wire for the glide advantage wire and then exchanged my sheath for a 9 Polish 11 cm sheath so that I Advanced the Penumbra CAT 7 Indigo Lightening Aspiration Catheter alongside the advantage wire and into the pseudoaneurysm so that I would not lose access to the stent graft. I was able to significantly reduce the thrombus burden however there was a large likely chronic piece of thrombus that now was lodged into the stent graft. I made multiple attempts to reduce this using the aspiration catheter however this was unsuccessful. I injected an additional 4 mg of tPA in hopes of lysing the thrombus however this was not successful. I then used an [id number] Kandy to try to dislodge the thrombus however instead of dislodging the thrombus this dislodged the stent graft from the area of stenosis between the pseudoaneurysms. At this point I decided to place an additional stent to treat the area of stenosis as well as trapping the thrombus that was now in the distal pseudoaneurysm. I advanced a 10 x 60 Covera stent graft across the area of stenosis and with approximately 2 cm of overlap within the 8 x 10 cm Viabahn stent graft. I deployed it and then postdilated the stent graft with a 10 x 40 [place] balloon. This resulted in a robust thrill. The final fistulogram revealed brisk flow of contrast throughout the fistula with less than 15% residual stenosis and minimal residual thrombus. At that point all balloons, catheters, and wires were removed and a 3-0 Vicryl suture was used in pursestring fashion to close the entry site after removing the remaining sheath. Dermabond was then applied and the patient was transported to the dialysis unit in stable condition.
[2021-11-08] MEDS: oxyCODONE /ACETAMINOPHEN 5-325MG TAB PO PRN (18:02)
--- NOTE | 2021-11-08 18:14 | Electrocardiograph Report ---
[facility] Test Date: 2021-11-08 Test Time: 07:21:25 Pat Name: BRADLEY GUO Department: Room: A466 1 Gender: M Unix Manager: KHANH : 1960 Requested By: SHOAIB STEPHEN Order Number: [id number] Reading MD: Delroy Jerez Measurements Intervals [place] Rate: 71 P: 50 RI: 133 QRS: -19 QRSD: 93 T: 15 QT: 424 QTc: 460 Interpretive Statements Sinus rhythm No previous ECG available for comparison Electronically Signed On 11-08-2021 18:14:18 EDT by Delroy Jerez
[2021-11-09] MEDS: INSULIN LISPRO 100 UNIT/ML SUB-Q SCH ×4 (00:17→17:06)
[2021-11-09] MEDS: MORPHINE 4 MG/1 ML INJ IV PRN (00:17)
[2021-11-09 05:30] LABS: Basophils % (Auto) 0.1 % (0.0-1.8); Hematocrit 39.4 % (35.5-45.6); Hemoglobin 12.7 gm/dl (11.8-15.2); Lymphocytes # (Auto) 0.5 K/mm3 (1.2-5.4); Lymphocytes % (Auto) 3.9 % (13.4-35.0); Mean Corpuscular HGB Conc 32 % (32-34); Mean Corpuscular Volume 96 fl (84-94); Monocytes # (Auto) 1.3 K/mm3 (0.0-0.8); Monocytes % (Auto) 10.8 % (0.0-7.3); Platelet Count 221 K/mm3 (140-440); Red Blood Count 4.11 M/mm3 (3.65-5.03); Red Cell Distribution Width 13.2 % (13.2-15.2)
[2021-11-09 05:44] LABS: Calcium 8.5 mg/dL (8.4-10.2)
--- NOTE | 2021-11-09 08:44 | Progress Note ---
Assessment and Plan 1. ESRD: Patient is on maintenance hemodialysis, MWF schedule. Last outpatient HD 11/03. Hemodialysis: 11/07, 11/08. 2. FEN: Hyperkalemia, improved with HD. UF with HD as tolerated. Monitor lytes and volume status. 3. Malfunctioning L arm AVF: Clotted AVF. S/p Vascath. S/p angioplasty. Followed by Vascular. 4. Hypertension: Continue home meds. Follow BP. 5. DM-2: Continue home meds. Monitor. 6. R leg wound: Wound care. Patient has an upcoming appt with wound care. Subjective: Patient was seen and examined at the bedside. Examination: General appearance: well-developed, well nourished, obese, appears stated age, not in distress HEENT: ENZO Neck: trachea midline Respiratory: ctab Heart: S1S2, regular, no murmur Abdomen: soft, bowel sounds heard, NT, no palpable mass Integumentary: R leg wound Neurologic: AO, non-focal Ext: R LE trace edema Hemodialysis access: L arm AVF with no bruit, L IJ non-tunnel catheter Subjective Date of service: 11/09/21 Objective - Vital Signs Vital signs: Vital Signs - 12hr 11/08/21 11/08/21 11/08/21 21:06 21:07 23:10 Temperature 97.4 F L Pulse Rate 92 H 92 H 86 Respiratory 18 Rate Respiratory Rate [Right Lower Leg] Blood Pressure 95/66 95/66 101/55 O2 Sat by Pulse 96 Oximetry 11/08/21 11/09/21 11/09/21 23:44 03:00 03:12 Temperature 97.6 F Pulse Rate 86 78 Respiratory 18 Rate Respiratory 19 Rate [Right Lower Leg] Blood Pressure 113/68 O2 Sat by Pulse 95 Oximetry - Lab 11/09/21 04:42 11/09/21 04:42 Most recent lab results Calcium 8.5 mg/dL (8.4-10.2) 11/09/21 04:42 Medications & Allergies - Medications Allergies/Adverse Reactions: Allergies Iodinated Contrast Media Allergy (Verified 11/07/21 11:07) Angioedema shrimp Allergy (Verified 06/01/20 11:11) Hives Home Medications: Home Medications Medication Instructions Recorded Confirmed Last Taken Type Gabapentin [Neurontin] 600 mg PO Q8H PRN 07/08/17 11/07/21 2 Days Ago History ~11/05/21 Metoprolol Tartrate 50 mg PO BID 07/08/17 11/07/21 11/06/21 History Lispro Insulin [HumaLOG] 6 unit SUB-Q AC units 07/19/17 11/07/21 Unknown Rx hydrALAZINE 25 mg PO TID 09/14/19 11/07/21 11/06/21 History Apixaban [Eliquis] 5 mg PO BID #60 11/09/21 Unknown Rx Active Medications: Generic Name Dose Route Start Last Admin Trade Name Freq PRN Reason Stop Dose Admin Acetaminophen 650 mg 11/07/21 16:00 Acetaminophen 325 Mg Tab PO Q4H PRN Pain MILD(1-3)/Fever >100.5/PATTERSON Albuterol 2.5 mg 11/07/21 16:00 Albuterol 2.5 Mg/3 Ml Nebu IH Q4HRT PRN Shortness Of Breath Apixaban 5 mg 11/09/21 10:00 Apixaban 5 Mg Tab PO Q12HR CHARLES Protocol Dextrose 50 ml 11/07/21 16:00 Dextrose 50% In Water (25gm) 50 Ml Syringe IV Q30MIN PRN Hypoglycemia Protocol Gabapentin 600 mg 11/07/21 17:00 Gabapentin 300 Mg Cap PO Q8HR PRN PAIN, SEVERE (7-10) Heparin Sodium (Porcine) 3,000 unit 11/07/21 16:00 Heparin 10,000 Units/10 Ml Vial IV MOE PRN hemodialysis Hydralazine HCl 25 mg 11/07/21 20:00 11/08/21 21:07 Hydralazine 25 Mg Tab PO Not Given TID CHARLES Sodium Chloride 100 mls @ 999 mls/hr 11/08/21 08:00 Nacl 0.9% IV MOE PRN Hypotension Insulin Human Lispro 0 unit 11/07/21 18:00 11/09/21 06:47 Insulin Lispro 100 Unit/Ml SUB-Q Not Given Q6HR CHARLES Protocol Metoprolol Tartrate 50 mg 11/07/21 22:00 11/08/21 21:06 Metoprolol Tartrate 50 Mg Tab PO 50 mg BID CHARLES Administration Morphine Sulfate 2 mg 11/07/21 16:30 11/09/21 00:17 Morphine 4 Mg/1 Ml Inj IV 2 mg Q14H PRN Administration Pain , Severe (7-10) Ondansetron HCl 4 mg 11/07/21 16:30 Ondansetron 4 Mg/2 Ml Inj IV Q8H PRN Nausea And Vomiting Oxycodone/Acetaminophen 1 tab 11/07/21 17:00 11/08/21 18:02 Oxycodone /Acetaminophen 5-325mg Tab PO 1 tab Q6H PRN Administration Pain, Moderate (4-6) Sodium Chloride 10 ml 11/07/21 22:00 11/08/21 21:07 Sodium Chloride 0.9% 10 Ml Flush Syringe IV 10 ml BID CHARLES Administration Sodium Chloride 10 ml 11/07/21 16:00 Sodium Chloride 0.9% 10 Ml Flush Syringe IV 11/12/21 15:59 PRN PRN LINE FLUSH
[2021-11-09] MEDS: METOPROLOL TARTRATE 50 MG TAB PO SCH (09:33)
[2021-11-09] MEDS: hydrALAZINE 25 MG TAB PO SCH ×2 (09:34→13:09)
[2021-11-09] MEDS: oxyCODONE /ACETAMINOPHEN 5-325MG TAB PO PRN (09:40)
[2021-11-09] MEDS ORDERED: APIXABAN 5 MG TAB PO SCH (10:00)
--- NOTE | 2021-11-09 16:57 | Discharge Summary ---
Providers - Providers Date of Admission: 11/07/21 14:37 Date of discharge: 11/09/21 Attending physician: RICHARD ZHANG 11/07/21 14:48 Consult to Physician [CONS] Routine Comment: Consulting Provider: ERROL MINOR Physician Instructions: Reason For Exam: esrd 11/08/21 00:41 Consult to Wound/ET Nurse [CONS] Urgent Reason For Exam: wound eval Primary care physician: MENDOZA CESPEDES MD Hospitalization Disposition: 01 HOME / SELF CARE / HOMELESS Exam - Constitutional Vitals: Temp Pulse Resp BP Pulse Ox 97.6 F 77 18 117/57 96 11/09/21 03:12 11/09/21 16:15 11/09/21 16:15 11/09/21 13:09 11/09/21 16:15 Plan Follow up with: MENDOZA CESPEDES MD [Primary Care Provider] - 7 Days Prescriptions: Apixaban [Eliquis] 5 mg PO BID #60
[2021-11-09 20:05] VITALS: BP 151/91
== END 2021-11-09 20:40 | disposition home or self-care (01) | DRG 270 ==
LOC: CATHLABREC 09:42 → 4A 14:37
PROVIDERS: ADMIT Internal Medicine; ATTEND Internal Medicine
PROC: 02H633Z Insertion of Infusion Device into Right Atrium, Percutaneous Approach (ICD-10-PCS; 2021-11-07)
PROC: B5181ZA Fluoroscopy of Superior Vena Cava using Low Osmolar Contrast, Guidance (ICD-10-PCS; 2021-11-07)
PROC: B548ZZA Ultrasonography of Superior Vena Cava, Guidance (ICD-10-PCS; 2021-11-07)
PROC: 5A1D70Z Performance of Urinary Filtration, Intermittent, Less than 6 Hours Per Day (ICD-10-PCS; 2021-11-07)
PROC: B544ZZA Ultrasonography of Left Jugular Veins, Guidance (ICD-10-PCS; 2021-11-07)
PROC: 037 Upper Arteries, Dilation (ICD-10-PCS; principal; 2021-11-08)
PROC: X2C New Technology, Cardiovascular System, Extirpation (ICD-10-PCS; 2021-11-08)
PROC: B51W1ZZ Fluoroscopy of Dialysis Shunt/Fistula using Low Osmolar Contrast (ICD-10-PCS; 2021-11-08)
PROC: 3E03317 Introduction of Other Thrombolytic into Peripheral Vein, Percutaneous Approach (ICD-10-PCS; 2021-11-08)
PROC: 5A1D70Z Performance of Urinary Filtration, Intermittent, Less than 6 Hours Per Day (ICD-10-PCS; 2021-11-08)
DX: T82.868A Thrombosis due to vascular prosthetic devices, implants and grafts, initial encounter (principal); N18.6 End stage renal disease; I12.0 Hypertensive chronic kidney disease with stage 5 chronic kidney disease or end stage renal disease; E66.2 Morbid (severe) obesity with alveolar hypoventilation; E87.5 Hyperkalemia; Z99.2 Dependence on renal dialysis; E78.5 Hyperlipidemia, unspecified; Y83.2 Surgical operation with anastomosis, bypass or graft as the cause of abnormal reaction of the patient, or of later complication, without mention of misadventure at the time of the procedure; Y92.89 Other specified places as the place of occurrence of the external cause; Z68.37 Body mass index [BMI] 37.0-37.9, adult; E11.22 Type 2 diabetes mellitus with diabetic chronic kidney disease; E11.51 Type 2 diabetes mellitus with diabetic peripheral angiopathy without gangrene; Z82.49 Family history of ischemic heart disease and other diseases of the circulatory system; Z79.4 Long term (current) use of insulin; Z91.041 Radiographic dye allergy status; Z91.013 Allergy to seafood
CPT/HCPCS: 36415; 36556; 36906; 80048; 80074; 82962; 84132; 85007; 85025; 93005; 96374; 96375; G0378; J3490; Q9967; C1725; C1752; C1757; C1769; C1874; C1887; C1894; J0360; J1200; J1644; J1720; J1815; J2250; J2270; J2930; J2997; J3010; J7040

== ENCOUNTER 2021-11-10 13:12 | Outpatient (CLI) | payer MEDICARE, OTHER ==
[2021-11-10] MEDS ORDERED: LIDOCAINE (4%) 40 MG/ML TOPICAL SOLN 50 ML BOTTLE TP ONE (14:00)
== END 2021-11-10 13:13 | disposition home or self-care (01) ==
LOC: WOUND 13:12
PROVIDERS: ATTEND Surgery
DX: E11.622 Type 2 diabetes mellitus with other skin ulcer (principal); L97.812 Non-pressure chronic ulcer of other part of right lower leg with fat layer exposed; L97.211 Non-pressure chronic ulcer of right calf limited to breakdown of skin; E11.51 Type 2 diabetes mellitus with diabetic peripheral angiopathy without gangrene; E11.40 Type 2 diabetes mellitus with diabetic neuropathy, unspecified; E11.22 Type 2 diabetes mellitus with diabetic chronic kidney disease; I12.0 Hypertensive chronic kidney disease with stage 5 chronic kidney disease or end stage renal disease; N18.6 End stage renal disease; G47.30 Sleep apnea, unspecified; F41.9 Anxiety disorder, unspecified; Z79.899 Other long term (current) drug therapy; Z79.4 Long term (current) use of insulin; Z99.2 Dependence on renal dialysis; Z87.891 Personal history of nicotine dependence
CPT/HCPCS: 99214; G0463

== ENCOUNTER 2021-11-17 13:36 | Outpatient (CLI) | payer MEDICARE, OTHER ==
[2021-11-17] MEDS ORDERED: LIDOCAINE (4%) 40 MG/ML TOPICAL SOLN 50 ML BOTTLE TP ONE ×2 (15:00→16:30)
== END 2021-11-17 13:37 | disposition home or self-care (01) ==
LOC: WOUND 13:36
PROVIDERS: ATTEND Surgery
DX: E11.622 Type 2 diabetes mellitus with other skin ulcer (principal); L97.211 Non-pressure chronic ulcer of right calf limited to breakdown of skin; L97.811 Non-pressure chronic ulcer of other part of right lower leg limited to breakdown of skin; M79.89 Other specified soft tissue disorders; E11.40 Type 2 diabetes mellitus with diabetic neuropathy, unspecified; E11.22 Type 2 diabetes mellitus with diabetic chronic kidney disease; I12.0 Hypertensive chronic kidney disease with stage 5 chronic kidney disease or end stage renal disease; N18.6 End stage renal disease; G47.30 Sleep apnea, unspecified; F41.9 Anxiety disorder, unspecified; Z79.899 Other long term (current) drug therapy; Z79.4 Long term (current) use of insulin; Z87.891 Personal history of nicotine dependence; Z99.2 Dependence on renal dialysis
CPT/HCPCS: 99214; G0463

== ENCOUNTER 2021-11-24 13:57 | Emergency (ER) | payer MEDICARE, OTHER ==
[2021-11-24 17:27] LABS: Basophils # (Auto) 0.2 K/mm3 (0.0-0.1); Basophils % (Auto) 2.8 % (0.0-1.8); Eosinophils # (Auto) 0.2 K/mm3 (0.0-0.4); Eosinophils % (Auto) 2.8 % (0.0-4.3); Hematocrit 38.4 % (35.5-45.6); Hemoglobin 12.5 gm/dl (11.8-15.2); Lymphocytes # (Auto) 1.1 K/mm3 (1.2-5.4); Lymphocytes % (Auto) 12.7 % (13.4-35.0); Mean Corpuscular HGB Conc 33 % (32-34); Mean Corpuscular Volume 94 fl (84-94); Monocytes % (Auto) 11.3 % (0.0-7.3); Platelet Count 311 K/mm3 (140-440); Red Blood Count 4.07 M/mm3 (3.65-5.03); Red Cell Distribution Width 13.5 % (13.2-15.2)
[2021-11-24 17:45] LABS: C-Reactive Protein 1.4 mg/dL (0.00-1.30); Calcium 9.6 mg/dL (8.4-10.2)
--- NOTE | 2021-11-24 18:49 | Emergency Department Report ---
ED General Adult HPI - General Chief complaint: Extremity Injury, Lower Stated complaint: PAIN IN RIGHT LEG Time Seen by Provider: 11/24/21 15:46 Source: patient Mode of arrival: Ambulatory Limitations: No Limitations - History of Present Illness Initial comments: Patient is a 61-year-old gentleman with history of end-stage renal disease, hypertension, diabetes who has been following with Dr. Eleuterio Ann for a chronic wound on his right lower extremity. Today he went to the wound care center for debridement and stated that pain was too severe to undergo debridement so he was sent here. They have been applying Lanacane and he states that is not helping with the pain from the procedure. Patient states that there is no worsening of his symptoms and it in fact looks better but he is unable to tolerate the debridement. Denies fever or chills. No swelling, chest pain, shortness of breath. Improves with: none Worsens with: none Associated Symptoms: denies: confusion, chest pain, cough, fever/chills, malaise, nausea/vomiting, shortness of breath - Related Data Home Medications Medication Instructions Recorded Confirmed Last Taken Gabapentin [Neurontin] 600 mg PO Q8H PRN 07/08/17 11/07/21 2 Days Ago ~11/05/21 Metoprolol Tartrate 50 mg PO BID 07/08/17 11/07/21 11/06/21 hydrALAZINE 25 mg PO TID 09/14/19 11/07/21 11/06/21 Previous Rx's Medication Instructions Recorded Last Taken Type Lispro Insulin [HumaLOG] 6 unit SUB-Q AC units 07/19/17 Unknown Rx Apixaban [Eliquis] 5 mg PO BID #60 11/09/21 Unknown Rx traMADoL [Ultram] 50 mg PO Q6HR PRN #12 tablet 11/24/21 Unknown Rx Allergies Allergy/AdvReac Type Severity Reaction Status Date / Time Iodinated Contrast Media Allergy Angioedema Verified 11/24/21 14:30 shrimp Allergy Hives Verified 11/24/21 14:30 ED Review of Systems ROS: Stated complaint: PAIN IN RIGHT LEG Other details as noted in HPI Comment: All other systems reviewed and negative Constitutional: denies: chills, fever Eyes: denies: eye pain, eye discharge, vision change ENT: denies: ear pain, throat pain Respiratory: denies: cough, shortness of breath, wheezing Cardiovascular: denies: chest pain, palpitations Endocrine: no symptoms reported Gastrointestinal: denies: abdominal pain, nausea, diarrhea Genitourinary: denies: urgency, dysuria Musculoskeletal: denies: back pain, joint swelling, arthralgia Skin: as per HPI. denies: rash Neurological: denies: headache, weakness, paresthesias Psychiatric: denies: anxiety, depression Hematological/Lymphatic: denies: easy bleeding, easy bruising ED Past Medical Hx - Past Medical History Previous Medical History?: Yes Hx Hypertension: Yes Hx Heart Attack/AMI: No Hx Congestive Heart Failure: No Hx Diabetes: Yes Hx Liver Disease: No Hx Renal Disease: Yes (M/W/F) Hx Arthritis: Yes Hx Asthma: No Hx COPD: No Additional medical history: sleep apnea - Surgical History Past Surgical History?: No Additional Surgical History: LEFT ARM SHUNT - Social History Smoking Status: Unknown if ever smoked Substance Use Type: None - Medications Home Medications: Home Medications Medication Instructions Recorded Confirmed Last Taken Type Gabapentin [Neurontin] 600 mg PO Q8H PRN 07/08/17 11/07/21 2 Days Ago History ~11/05/21 Metoprolol Tartrate 50 mg PO BID 07/08/17 11/07/21 11/06/21 History Lispro Insulin [HumaLOG] 6 unit SUB-Q AC units 07/19/17 11/07/21 Unknown Rx hydrALAZINE 25 mg PO TID 09/14/19 11/07/21 11/06/21 History Apixaban [Eliquis] 5 mg PO BID #60 11/09/21 Unknown Rx traMADoL [Ultram] 50 mg PO Q6HR PRN #12 tablet 11/24/21 Unknown Rx ED Physical Exam - General Limitations: No Limitations General appearance: alert, in no apparent distress - Head Head exam: Present: atraumatic, normocephalic - Eye Eye exam: Present: normal appearance - ENT ENT exam: Present: mucous membranes moist - Neck Neck exam: Present: normal inspection - Respiratory Respiratory exam: Present: normal lung sounds bilaterally. Absent: respiratory distress - Cardiovascular Cardiovascular Exam: Present: regular rate, normal rhythm. Absent: systolic murmur, diastolic murmur, rubs, gallop - GI/Abdominal GI/Abdominal exam: Present: soft, normal bowel sounds - Rectal Rectal exam: Present: deferred - Extremities Exam Extremities exam: Present: full ROM, tenderness (Right lower extremity wound area very tender to palpation.), normal capillary refill, other (Pedal pulses full and symmetrical.) - Back Exam Back exam: Present: normal inspection, full ROM - Neurological Exam Neurological exam: Present: alert, oriented X3, motor sensory deficit, reflexes normal - Psychiatric Psychiatric exam: Present: normal affect, normal mood - Skin Skin exam: Present: warm, dry, normal color, other (Right lower extremity: Lateral calf with coalescing area of eschar with mild surrounding erythema. No exudate. The area is tender to touch.) ED Course Vital Signs 11/24/21 14:28 Temperature 98.9 F Pulse Rate 91 H Respiratory 18 Rate Blood Pressure 130/75 [Left] O2 Sat by Pulse 99 Oximetry - Reevaluation(s) Reevaluation #1: 11/24/21 21:45 Patient remained comfortable throughout stay except painful to touch. ED Medical Decision Making - Lab Data Result diagrams: 11/24/21 17:02 11/24/21 17:02 - Radiology Data Radiology results: report reviewed [address] [address] Vascular Lab Report Signed Patient: BRADLEY GUO MR#: [id number] : 1960 Acct:[id number] Age/Sex: 61 / M ADM Date: 11/24/21 Loc: ED Attending Dr: Ordering Physician: TRINA FRAZIER Date of Service: 11/24/21 Procedure(s): VL venous duplex LE BILAT Accession Number(s): [id number] cc: TRINA FRAZIER VL venous duplex LE BILAT INDICATION / CLINICAL INFORMATION: LE edema - chronic wound. TECHNIQUE: Multiple grayscale sonographic images of left upper extremity were obtained utilizing a high- frequency linear array transducer with color Doppler, compression and other ma neuvers when feasible. COMPARISON: None available. FINDINGS: No venous thrombosis is identified within the visualized extremity vasculature. ADDITIONAL FINDINGS: None. IMPRESSION: 1. No sonographic evidence for DVT in the visualized bilateral lower extremity vasculature. Signer Name: Osbaldo Miguel MD Signed: 11/24/2021 7:07 PM Workstation Name: [id number] Transcribed By: Dictated By: Osbaldo Miguel MD Electronically Authenticated By: Osbaldo Miguel MD Signed Date/Time: 11/24/211906 DD/ 06 TD/TT: Print Cancel - Medical Decision Making Is a 61-year-old gentleman with lower extremity wound that has been being followed by help desk specialist. Pain was too severe today to undergo debrid ement so he was sent here. Ultrasound negative CRP only minimally elevated. I will provide Ultram for him to take prior to having his debridement. He really needs pain management as his primary care doctor suggested. - Differential Diagnosis Leg wound. Necrotizing fasciitis. DVT. End-stage renal disease. Critical care attestation.: If time is entered above; I have spent that time in minutes in the direct care of this critically ill patient, excluding procedure time. ED Disposition Clinical Impression: Leg pain, Leg wound, right Disposition: 01 HOME / SELF CARE / HOMELESS Is pt being admited?: No Condition: Stable Instructions: Wound Care, Adult Additional Instructions: Take the Ultram prior to your debridements. Follow-up with primary care physician regarding pain management referral. Prescriptions: traMADoL [Ultram] 50 mg PO Q6HR PRN #12 tablet PRN Reason: Pain Referrals: MARK PHAN MD [Staff Physician] - 3-5 Days Time of Disposition: 20:15
--- NOTE | 2021-11-24 19:12 | Vascular Lab Report ---
VL venous duplex LE BILAT INDICATION / CLINICAL INFORMATION: LE edema - chronic wound. TECHNIQUE: Multiple grayscale sonographic images of left upper extremity were obtained utilizing a high-frequenc y linear array transducer with color Doppler, compression and other maneuvers when feasible. COMPARISON: None available. FINDINGS: No venous thrombosis is identified within the visualized extremity vasculature. ADDITIONAL FINDINGS: None. IMPRESSION: 1. No sonographic evidence for DVT in the visualized bilateral lower extremity vasculature. Signer Name: Osbaldo Miguel MD Signed: 11/24/2021 7:07 PM Workstation Name: [id number]
[2021-11-24 22:43] VITALS: BP 195/85
== END 2021-11-24 20:25 | disposition home or self-care (01) ==
LOC: ED 13:57
DX: S81.801A Unspecified open wound, right lower leg, initial encounter (principal); I10 Essential (primary) hypertension; E11.9 Type 2 diabetes mellitus without complications; N28.9 Disorder of kidney and ureter, unspecified; M19.90 Unspecified osteoarthritis, unspecified site; Z91.013 Allergy to seafood; Z91.09 Other allergy status, other than to drugs and biological substances; Z79.899 Other long term (current) drug therapy; Y99.8 Other external cause status; Y92.89 Other specified places as the place of occurrence of the external cause; Y93.89 Activity, other specified; X58.XXXA Exposure to other specified factors, initial encounter
CPT/HCPCS: 36415; 80053; 85025; 86140; 93970; 99284

== ENCOUNTER 2021-12-01 08:28 | Outpatient (CLI) | payer MEDICARE, OTHER ==
[2021-12-01] MEDS ORDERED: LIDOCAINE (4%) 40 MG/ML TOPICAL SOLN 50 ML BOTTLE TP SCH (08:45)
== END 2021-12-01 08:29 | disposition home or self-care (01) ==
LOC: WOUND 08:28
PROVIDERS: ATTEND Surgery
DX: E11.622 Type 2 diabetes mellitus with other skin ulcer (principal); L97.811 Non-pressure chronic ulcer of other part of right lower leg limited to breakdown of skin; L97.211 Non-pressure chronic ulcer of right calf limited to breakdown of skin; M79.89 Other specified soft tissue disorders; E11.40 Type 2 diabetes mellitus with diabetic neuropathy, unspecified; E11.22 Type 2 diabetes mellitus with diabetic chronic kidney disease; I12.0 Hypertensive chronic kidney disease with stage 5 chronic kidney disease or end stage renal disease; N18.6 End stage renal disease; G47.30 Sleep apnea, unspecified; F41.9 Anxiety disorder, unspecified; Z79.899 Other long term (current) drug therapy; Z79.4 Long term (current) use of insulin; Z87.891 Personal history of nicotine dependence; Z99.2 Dependence on renal dialysis
CPT/HCPCS: 99213; G0463